=== PATIENT | female | born 2000 | race Caucasian/White ===

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

== ENCOUNTER → 2019-03-21 | Outpatient (CLI) | payer OTHER | LOC: M OUTALCOH 09:00 | PROVIDERS: ATTEND Psychiatry & Neurology Psychiatry | DX: F12.20 Cannabis dependence, uncomplicated (principal) ==

== ENCOUNTER → 2019-03-26 | Outpatient (REF) | payer OTHER ==
[2019-03-26 22:44] LABS: INFLUENZA A AMPLIFICATION NEGATIVE (NEGATIVE); INFLUENZA B AMPLIFICATION NEGATIVE (NEGATIVE)
== END ==
LOC: M LAB REF 10:25
PROVIDERS: ATTEND Physician Assistant Medical
DX: J11.1 Influenza due to unidentified influenza virus with other respiratory manifestations (principal)

== ENCOUNTER 2019-05-02 13:59 | Outpatient (RCR) | payer OTHER | END 2019-05-05 | LOC: M OUTALCOH 13:59 | PROVIDERS: ATTEND Psychiatry & Neurology Psychiatry | DX: F12.20 Cannabis dependence, uncomplicated (principal) ==

== ENCOUNTER → 2019-06-05 | Outpatient (RCR) | payer OTHER | LOC: M OUTALCOH 05-15 12:01 | PROVIDERS: ATTEND Psychiatry & Neurology Psychiatry | DX: F12.20 Cannabis dependence, uncomplicated (principal) ==

== ENCOUNTER 2019-06-25 10:28 | Emergency (ER) | payer OTHER ==
[~2019-06-25] VITALS: Ht 170.2 cm; Wt 84.1 kg
[2019-06-25 10:28] VITALS: BP 175/97
[2019-06-25] MEDS ORDERED: ONDA-83 (10:34)
[2019-06-25] MEDS ORDERED: ONDANSETRON 4MG/2ML VIAL (J2405) IV ONE (11:15)
[2019-06-25] MEDS ORDERED: KETOROLAC 30 MG/ML VIAL (J1885) IV ONE (11:15)
[2019-06-25] MEDS ORDERED: NS 1,000 ML IV ONE (11:15)
[2019-06-25 13:12] LABS: AMPHETAMINES LEVEL URINE NEGATIVE (NEGATIVE); BARBITURATES URINE NEGATIVE (NEGATIVE); BENZODIAZEPINES URINE NEGATIVE (NEGATIVE); CANNABINOIDS URINE POSITIVE (NEGATIVE); COCAINE METABOLITE URINE NEGATIVE (NEGATIVE); METHADONE URINE NEGATIVE (NEGATIVE); OPIATES URINE NEGATIVE (NEGATIVE); PHENCYCLIDINE URINE NEGATIVE (NEGATIVE)
[2019-06-25] MEDS ORDERED: ZOFR4TAB16 PO (22:50)
[2019-06-25] MEDS ORDERED: VICKLIQ28 PO (22:50)
[2019-06-25] MEDS ORDERED: VICKLIQ PO (22:50)
== END 2019-06-25 11:35 | disposition left against medical advice (07) ==
LOC: M ED 10:28
DX: R11.10 Vomiting, unspecified (principal); Z53.29 Procedure and treatment not carried out because of patient's decision for other reasons

== ENCOUNTER 2019-06-25 12:46 | Observation (INO) | payer OTHER ==
[~2019-06-25] VITALS: Ht 170.2 cm; Wt 82.7 kg
[~2019-06-25 12:46] MED LIST changes: +ONDA-83
[2019-06-25] MEDS ORDERED: NS 1,000 ML IV ONE (13:15)
[2019-06-25] MEDS ORDERED: KETOROLAC 30 MG/ML VIAL (J1885) IV ONE (13:15)
[2019-06-25] MEDS ORDERED: ONDANSETRON 4MG/2ML VIAL (J2405) IV ONE ×2 (13:15→19:00)
[2019-06-25] MEDS ORDERED: CAPSAICIN 0.025% CR 60 GM TOP ONE (14:15)
[2019-06-25] MEDS ORDERED: HALOPERIDOL 5 MG/ML VIAL (J1630) IV ONE (14:15)
[2019-06-25 14:26] LABS: BASO % 0.3 % (0.0-1.0); HEMATOCRIT 38.7 % (36.0-47.0); LYMPH # 0.9 10^3/uL (1.5-5.0); LYMPH % 7.9 % (24.0-44.0); MEAN CORPUSCULAR HEMOGLOBIN 31.7 pg (27.0-33.0); MEAN CORPUSCULAR HGB CONC 33.6 g/dl (32.0-36.5); MEAN CORPUSCULAR VOLUME 94.4 fl (80.0-96.0); MONO # 0.3 10^3/uL (0.0-0.8); MONO % 2.6 % (0.0-5.0); NEUTROPHILS # 9.5 10^3/uL (1.5-8.5); NEUTROPHILS % 88.7 % (36.0-66.0); PLATELET COUNT, AUTOMATED 280 10^3/uL (150-450); WHITE BLOOD COUNT 10.7 10^3/uL (4.0-10.0)
[2019-06-25 14:52] LABS: ALBUMIN 3.9 GM/DL (3.2-5.2); ALT/SGPT 27 U/L (12-78); BILIRUBIN,DIRECT 0.2 MG/DL (0.0-0.2); BILIRUBIN,TOTAL 0.5 MG/DL (0.2-1.0); LIPASE 79 U/L (73-393); TOTAL PROTEIN 7.4 GM/DL (6.4-8.2)
[2019-06-25] MEDS ORDERED: METOCLOPRAMIDE INJ 10MG/2ML VIAL (J2765) IV ONE (17:00)
[2019-06-25 17:46] LABS: AMPHETAMINES LEVEL URINE NEGATIVE (NEGATIVE); BARBITURATES URINE NEGATIVE (NEGATIVE); BENZODIAZEPINES URINE NEGATIVE (NEGATIVE); CANNABINOIDS URINE POSITIVE (NEGATIVE); COCAINE METABOLITE URINE NEGATIVE (NEGATIVE); METHADONE URINE NEGATIVE (NEGATIVE); OPIATES URINE NEGATIVE (NEGATIVE); PHENCYCLIDINE URINE NEGATIVE (NEGATIVE)
[2019-06-25] MEDS ORDERED: NS 1,000 ML IV SCH (19:00)
[2019-06-25 19:01] LABS: BLOOD UREA NITROGEN 14 MG/DL (7-18); CALCIUM LEVEL 8.8 MG/DL (8.5-10.1); CARBON DIOXIDE LEVEL 28 MEQ/L (21-32); CHLORIDE LEVEL 106 MEQ/L (98-107); CREATININE FOR GFR 0.91 MG/DL (0.55-1.30); GLUCOSE, FASTING 107 MG/DL (70-100); POTASSIUM SERUM 3.7 MEQ/L (3.5-5.1); SODIUM LEVEL 140 MEQ/L (136-145)
[2019-06-25] MEDS ORDERED: ISOVUE-370 76% 100ML VIAL (Q9967) As Ordered ONE (19:54)
--- NOTE | 2019-06-25 20:50 | REPVR ---
PROCEDURE INFORMATION: Exam: CT Abdomen And Pelvis With Contrast Exam date and time: 06/25/2019 8:36 PM Age: 19 years old Clinical indication: Abdominal pain; Additional info: Severe abdominal pain; R/O obstruction TECHNIQUE: Imaging protocol: Computed tomography of the abdomen and pelvis with intravenous contrast. Radiation optimization: All CT scans at this facility use at least one of these dose optimization techniques: automated exposure control; mA and/or kV adjustment per patient size (includes targeted exams where dose is matched to clinical indication); or iterative reconstruction. Contrast material: ISOVUE 370; Contrast volume: 100 ml; Contrast route: IV; COMPARISON: No relevant prior studies available. FINDINGS: Liver: Normal. No mass. Gallbladder and bile ducts: Normal. No calcified stones. No ductal dilation. Pancreas: Normal. No ductal dilation. Spleen: Normal. No splenomegaly. Adrenals: Normal. No mass. Kidneys and ureters: Normal. No hydronephrosis. Stomach and bowel: Unremarkable. No obstruction. No mucosal thickening. Appendix: No evidence of appendicitis. Intraperitoneal space: Minimal cul-de-sac fluid consistent likely functional. Vasculature: Unremarkable. No abdominal aortic aneurysm. Lymph nodes: Unremarkable. No enlarged lymph nodes. Bladder: Unremarkable as visualized. Reproductive: Unremarkable as visualized. Bones/joints: Unremarkable. No acute fracture. Soft tissues: Mild anasarca. IMPRESSION: 1. Mild anasarca. 2. No acute findings. Electronically signed by: Felix Lucero On 06/25/2019 20:50:36 PM
[2019-06-25] MEDS ORDERED: ACETAMINOPHEN TAB 650MG DOSE (2X325MG) PO PRN (22:45)
[2019-06-25] MEDS ORDERED: METOCLOPRAMIDE INJ 10MG/2ML VIAL (J2765) IV PRN (22:45)
[2019-06-25] MEDS ORDERED: D5W/0.45% SODIUM CHLORIDE 1,000 ML IV SCH (22:45)
[2019-06-25] MEDS ORDERED: DICYCLOMINE 10 MG CAP PO PRN (22:45)
[2019-06-25] MEDS ORDERED: ZOFR4TAB16 PO (22:50)
[2019-06-25] MEDS ORDERED: VICKLIQ PO (22:50)
[2019-06-25] MEDS ORDERED: VICKLIQ28 PO (22:50)
[2019-06-26 00:12] VITALS: BP 139/83
--- NOTE | 2019-06-26 02:15 | HPEPDOC ---
General Date of Admission Jun 25, 2019 at 12:47 Date of Service: Jun 25, 2019 Chief Complaint The patient is a 19-year-old female Who presented to the emergency room with complaints of nausea, vomiting History of Present Illness Patient is a 19-year-old female with a past history of recurrent episodes of nausea and vomiting, was presented to the emergency room with complaints of nausea, vomiting associated with abdominal pain. Patient reports that on Tuesday she began to experience nausea and vomiting and reports at least 10 episodes a day of vomiting reported that her vomitus looks watery/yellow without any evidence of blood. She has noted associated abdominal pain; described as diffuse, 8/10, crampy alleviated with capsaicin cream received in the emergency room and aggravated by nothing. Patient denies any discomfort with urination. She does report diarrhea that happened 1 time this morning and describes his stool as loose. Patient reported subjective fevers, however she never measured her temperature and has reported chills. Patient denies chest pain, shortness of breath, palpitations, cough or headaches She notes her appetite is poor and has lost a few pounds over the last 1 week. Home Medications Scheduled PRN D-Methorphan/PE/Acetaminophen (Vicks Dayquil Liquid) 236 Ml Liquid, 15 ML PO Q4H PRN for COLD/FLU, (Reported) MAX DAILY DOSE OF 4 DOSES Dm/Acetaminophen/Doxylamine (Vicks Nyquil Cold-Flu Liquid) 354 Ml Liquid, 30 ML PO QHS PRN for COLD/FLU, (Reported) Ondansetron HCl (Zofran) 4 Mg Tablet, 4 MG PO Q4H PRN for NAUSEA, (Reported) Allergies Coded Allergies: No Known Allergies (Unverified , 06/25/19) Past Medical History Medical History No significant past medical history reported Surgical History Patient reports that she had a right ankle fracture approximately 3-4 years ago Family History - No history of malignancies Social History - Denies the use of alcohol; patient reports that she smokes tobacco occasionally. Also reports that she smokes marijuana, last use was Tuesday - Denies recent travel or sick contacts - Lives with friend - Occupation; patient is currently unemployed and does not go to school Review of Systems Other systems 10 point review of systems complete, all negative otherwise stated in HPI Vital Signs - Vitals: BP 139/83, HR 76, RR 16, Sat 97%RA, Temp 97.8F - General: Lying in bed, No acute distress, Speaking in full sentences, AAOx3 - HEENT: NC, AT, PERRLA, EOMI - CVS: RRR, +S1S2 - Lungs: Fair air entry bilaterally, No wheezing / rales / rhonchi - Abdomen: Soft, Non-distended, mild tenderness appreciated at epigastrium - Extremities: No lower extremity edema, No calf tenderness - Neuro: No focal motor or sensory deficit - Skin: No visible rashes Laboratory Data Labs 24H Laboratory Tests 2 06/25/19 13:07: Immature Granulocyte % (Auto) 0.5, Neutrophils (%) (Auto) 88.7H, Lymphocytes (%) (Auto) 7.9L, Monocytes (%) (Auto) 2.6, Eosinophils (%) (Auto) 0.0, Basophils (%) (Auto) 0.3, Neutrophils # (Auto) 9.5H, Lymphocytes # (Auto) 0.9L, Monocytes # (Auto) 0.3, Eosinophils # (Auto) 0.0, Basophils # (Auto) 0.0, Nucleated Red B lood Cells % (auto) 0.0, Anion Gap 6L, Calcium Level 8.8, Total Bilirubin 0.5, Direct Bilirubin 0.2, Aspartate Amino Transf (AST/SGOT) 15, Alanine Aminotransferase (ALT/SGPT) 27, Alkaline Phosphatase 54, Total Protein 7.4, Albumin 3.9, Albumin/Globulin Ratio 1.11, Lipase 79 06/25/19 17:08: Urine Color YELLOW, Urine Appearance HAZY, Urine pH 6.0, Urine Specific [place] 1.011, Urine Protein NEGATIVE, Urine Glucose (UA) NEGATIVE, Urine Ketones TRACEH, Urine Blood 2+H, Urine Nitrite NEGATIVE, Urine Bilirubin NEGATIVE, Urine Urobilinogen 0.2, Urine Leukocyte Esterase TRACEH, Urine WBC (Auto) 5H, Urine RBC (Auto) 1, Urine Hyaline Casts (Auto) 0, Urine Bacteria (Auto) NEGATIVE, Urine Squamous Epithelial Cells 1, Urine Mucus (Auto) SMALL, Urine Sperm (Auto) , Urine Opiates Screen NEGATIVE, Urine Methadone Screen NEGATIVE, Urine Barbiturates Screen NEGATIVE, Urine Phencyclidine Screen NEGATIVE, Urine Amphetamines Screen NEGATIVE, Urine Benzodiazepines Screen NEGATIVE, Urine Cocaine Metabolite Screen NEGATIVE, Urine Cannabinoids Screen POSITIVEH CBC/BMP Laboratory Tests 06/25/19 13:07 Microbiology Microbiology 06/25/19 Urine Culture, Received Pending Plan / VTE VTE Prophylaxis Ordered?: Yes Plan Plan Intractable nausea and vomiting - likely 2/2 cyclic vomiting syndrome - 2/2 marijuana use, possibly 2/2 viral gastroenteritis - Presented to the emergency room after having nausea and vomiting since Tuesday - Physical with mild epigastric tenderness noted - Mild leukocytosis; lipase level normal - CT abdomen / pelvis 06/25: 1. Mild anasarca. 2. No acute findings. - Will continue with symptomatic control with dicyclomine and metoclopramide - c/w NPO for now; except medications - Will start IV fluid hydration Gastrointestinal prophylaxis - Will start Protonix DVT prophylaxis - Will start Heparin CONSTANZA VALENCIA MD Jun 26, 2019 02:15
[2019-06-26] MEDS ORDERED: HEPARIN SOD (PORCINE) 5000 UNITS/ML VIAL SC SCH (06:00)
[2019-06-26 06:12] VITALS: BP 143/76
[2019-06-26 06:30] LABS: BASO % 0.3 % (0.0-1.0); EOS # 0.1 10^3/uL (0.0-0.5); EOS % 0.7 % (0.0-3.0); HEMATOCRIT 34.6 % (36.0-47.0); HEMOGLOBIN 11.7 g/dl (12.0-15.5); LYMPH # 2.7 10^3/uL (1.5-5.0); LYMPH % 28.8 % (24.0-44.0); MEAN CORPUSCULAR HEMOGLOBIN 31.9 pg (27.0-33.0); MEAN CORPUSCULAR HGB CONC 33.8 g/dl (32.0-36.5); MEAN CORPUSCULAR VOLUME 94.3 fl (80.0-96.0); MONO # 0.7 10^3/uL (0.0-0.8); MONO % 7.3 % (0.0-5.0); NEUTROPHILS # 5.7 10^3/uL (1.5-8.5); NEUTROPHILS % 62.5 % (36.0-66.0); PLATELET COUNT, AUTOMATED 243 10^3/uL (150-450); RED BLOOD COUNT 3.67 10^6/uL (4.00-5.40); WHITE BLOOD COUNT 9.2 10^3/uL (4.0-10.0)
[2019-06-26 07:00] LABS: BLOOD UREA NITROGEN 10 MG/DL (7-18); CALCIUM LEVEL 8.6 MG/DL (8.5-10.1); CARBON DIOXIDE LEVEL 27 MEQ/L (21-32); CHLORIDE LEVEL 106 MEQ/L (98-107); CREATININE FOR GFR 0.89 MG/DL (0.55-1.30); GLUCOSE, FASTING 88 MG/DL (70-100); SODIUM LEVEL 139 MEQ/L (136-145)
[2019-06-26] MEDS: KCL 10MEQ/100ML SWI (KRUN) 10 MEQ in IV 1 EA IV SCH ×2 (08:31→09:00)
[2019-06-26] MEDS ORDERED: PANTOPRAZOLE 40MG TAB (PROTONIX) PO SCH (09:00)
[2019-06-26] MEDS ORDERED: CAPSAICIN 0.025% CR 60 GM TOP SCH (09:00)
[2019-06-26] MEDS ORDERED: POTASSIUM CHLORIDE 10 MEQ SR TABLET PO ONE (09:30)
[2019-06-26 14:00] VITALS: BP_SYST 127
--- NOTE | 2019-06-26 16:09 | DS.PDOC ---
Discharge Summary General Date of Admission Jun 25, 2019 at 12:47 Date of Discharge 06/26/19 Discharge Summary PROCEDURES PERFORMED DURING STAY: None. ADMITTING DIAGNOSES: 1. Cannabinoid hyperemesis syndrome. DISCHARGE DIAGNOSES: 1. Cannabinoid hyperemesis syndrome , hypokalemia. COMPLICATIONS/CHIEF COMPLAINT: Cannabinoid Hyperemesis Syndrome. HISTORY OF PRESENT ILLNESS: Patient is a 19-year-old female with a past history of recurrent episodes of nausea and vomiting, was presented to the emergency room with complaints of nausea, vomiting associated with abdominal pain. Patient reports that on Tuesday she began to experience nausea and vomiting and reports at least 10 episodes a day of vomiting reported that her vomitus looks watery/yellow without any evidence of blood. She has noted associated abdominal pain; described as diffuse, 8/10, crampy alleviated with capsaicin cream received in the emergency room and aggravated by nothing. Patient denies any discomfort with urination. She does report diarrhea that happened 1 time this morning and describes his stool as loose. Patient reported subjective fevers, however she never measured her temperature and has reported chills. Patient denies chest pain, shortness of breath, palpitations, cough or headaches She notes her appetite is poor and has lost a few pounds over the last 1 week.. HOSPITAL COURSE: [Patient was admitted to medical floor under observation. Patient was started on IV fluids and provided with Zofran for nausea, vomiting . Patient responded very well to the treatment in the morning. She was hungry and her diet was progressed. No more nausea, vomiting. She tolerated diet very well. Her potassium was slightly low. Hence, she did receive supplement for potassium before discharge. Patient clinically stable he'll be discharged home on all current home meds. Patient was advised not to consume marijuana as it causes hyperemesis syndrome and also causes hypokalemia secondary to nausea, vomiting, she understands very well and promised not to consume marijuana anymore. DISCHARGE MEDICATIONS: Please see below. ALLERGIES: Please see below. PHYSICAL EXAMINATION ON DISCHARGE: VITAL SIGNS: Please see below. GENERAL: Within normal limits HEENT: PERRLA extraocular muscles intact NECK: Supple CARDIOVASCULAR EXAMINATION: S1, S2, regular RESPIRATORY EXAMINATION: Clear to A&P ABDOMINAL EXAMINATION: , Soft, nontender, bowel sounds present EXTREMITIES: no cyanosis, edema SKIN: Normal NEUROLOGICAL EXAMINATION: . No focal motor sensory deficit PSYCHIATRIC EXAMINATION: Normal LABORATORY DATA: Please see below. IMAGING: CT abdomen and pelvis: IMPRESSION: 1. Mild anasarca. 2. No acute findings. PROGNOSIS: Good ACTIVITY: As tolerated. DIET: Tolerated DISCHARGE PLAN: Discharge Home DISPOSITION: . Home DISCHARGE INSTRUCTIONS: 1. As per discharge instructions. ITEMS TO FOLLOWUP ON ON OUTPATIENT: 1. Follow with PCP in one week. DISCHARGE CONDITION: Stable. TIME SPENT ON DISCHARGE: 28 minutes. Vital Signs/I&Os Vital Signs Date Time Temp Pulse Resp B/P (MAP) Pulse Ox O2 Delivery O2 Flow Rate FiO2 06/26/19 06:12 96.9 73 17 143/76 (98) 96 Room Air I&O- Last 24 Hours up to 6 AM 06/26/19 06:00 Intake Total 360 ml Balance 360 ml Laboratory Data Labs 24H Laboratory Tests 2 06/25/19 17:08: Urine Color YELLOW, Urine Appearance HAZY, Urine pH 6.0, Urine Specific [place] 1.011, Urine Protein NEGATIVE, Urine Glucose (UA) NEGATIVE, Urine Ketones TRACEH, Urine Blood 2+H, Urine Nitrite NEGATIVE, Urine Bilirubin NEGATIVE, Urine Urobilinogen 0.2, Urine Leukocyte Esterase TRACEH, Urine WBC (Auto) 5H, Urine RBC (Auto) 1, Urine Hyaline Casts (Auto) 0, Urine Bacteria (Auto) NEGATIVE, Urine Squamous Epithelial Cells 1, Urine Mucus (Auto) SMALL, Urine Sperm (Auto) , Urine Opiates Screen NEGATIVE, Urine Methadone Screen NEGATIVE, Urine Barbiturates Screen NEGATIVE, Urine Phencyclidine Screen NEGATIVE, Urine Amphetamines Screen NEGATIVE, Urine Benzodiazepines Screen NEGATIVE, Urine Cocaine Metabolite Screen NEGATIVE, Urine Cannabinoids Screen POSITIVEH 06/26/19 06:09: Immature Granulocyte % (Auto) 0.4, Neutrophils (%) (Auto) 62.5, Lymphocytes (%) (Auto) 28.8, Monocytes (%) (Auto) 7.3H, Eosinophils (%) (Auto) 0.7, Basophils (%) (Auto) 0.3, Neutrophils # (Auto) 5.7, Lymphocytes # (Auto) 2.7, Monocytes # (Auto) 0.7, Eosinophils # (Auto) 0.1, Basophils # (Auto) 0.0, Nucleated Red Blood Cells % (auto) 0.0, Anion Gap 6L, Calcium Level 8.6, Magnesium Level 2.0 CBC/BMP Laboratory Tests 06/26/19 06:09 06/26/19 11:44 Microbiology Microbiology 06/25/19 Urine Culture, Received Pending Discharge Medications Scheduled PRN D-Methorphan/PE/Acetaminophen (Vicks Dayquil Liquid) 236 Ml Liquid, 15 ML PO Q4H PRN for COLD/FLU, (Reported) MAX DAILY DOSE OF 4 DOSES Dm/Acetaminophen/Doxylamine (Vicks Nyquil Cold-Flu Liquid) 354 Ml Liquid, 30 ML PO QHS PRN for COLD/FLU, (Reported) Ondansetron HCl (Zofran) 4 Mg Tablet, 4 MG PO Q4H PRN for NAUSEA, (Reported) Allergies Coded Allergies: No Known Allergies (Unverified , 06/25/19) ALFONSO BENNETT MD Jun 26, 2019 16:09
== END 2019-06-26 16:05 | disposition home or self-care (01) ==
LOC: M ED 12:46 → M ED INP 12:47 → ENRESERV 23:11 → M MS5PR 06-26 00:14
PROVIDERS: ADMIT Internal Medicine; ATTEND Internal Medicine
DX: F12.188 Cannabis abuse with other cannabis-induced disorder (principal); E87.6 Hypokalemia; F17.218 Nicotine dependence, cigarettes, with other nicotine-induced disorders
CPT/HCPCS: 36415; 74177; 80048; 80076; 80307; 81001; 83690; 83735; 84132; 85025; 87086; 96361; 96372; 96374; 96375; 99284; J1630; J2405; J2765; Q9967

== ENCOUNTER → 2019-07-06 | Outpatient (RCR) | payer OTHER ==
[~2019-07-06] MED LIST changes: +VICKLIQ PO; +VICKLIQ28 PO; +ZOFR4TAB16 PO
== END ==
LOC: M OUTALCOH 06-12 13:07
PROVIDERS: ATTEND Psychiatry & Neurology Psychiatry
DX: F12.20 Cannabis dependence, uncomplicated (principal)

== ENCOUNTER 2019-08-01 12:00 | Outpatient (RCR) | payer OTHER | END 2019-08-04 | LOC: M OUTALCOH 12:00 | PROVIDERS: ATTEND Psychiatry & Neurology Addiction Medicine | DX: F12.20 Cannabis dependence, uncomplicated (principal) ==

== ENCOUNTER → 2019-09-04 | Outpatient (RCR) | payer OTHER | LOC: M OUTALCOH 08-07 13:06 | PROVIDERS: ATTEND Psychiatry & Neurology Addiction Medicine | DX: F12.20 Cannabis dependence, uncomplicated (principal) ==

== ENCOUNTER 2019-10-03 13:52 | Outpatient (RCR) | payer OTHER | END 2019-10-04 | LOC: M OUTALCOH 13:52 | PROVIDERS: ATTEND Psychiatry & Neurology Addiction Medicine | DX: F12.20 Cannabis dependence, uncomplicated (principal) ==

== ENCOUNTER 2019-11-01 09:00 | Outpatient (RCR) | payer OTHER | END 2019-11-04 | LOC: M OUTALCOH 09:00 | PROVIDERS: ATTEND Psychiatry & Neurology Addiction Medicine | DX: F12.20 Cannabis dependence, uncomplicated (principal) ==

== ENCOUNTER 2019-11-06 11:09 | Emergency (ER) | payer OTHER ==
[~2019-11-06] VITALS: Ht 170.2 cm; Wt 84.1 kg
[2019-11-06 11:31] LABS: BASO % 0.2 % (0.0-1.0); EOS % 0.1 % (0.0-3.0); HEMATOCRIT 40.9 % (36.0-47.0); HEMOGLOBIN 13.8 g/dl (12.0-15.5); LYMPH # 1.3 10^3/uL (1.5-5.0); LYMPH % 9.1 % (24.0-44.0); MEAN CORPUSCULAR HEMOGLOBIN 31.8 pg (27.0-33.0); MEAN CORPUSCULAR HGB CONC 33.7 g/dl (32.0-36.5); MEAN CORPUSCULAR VOLUME 94.2 fl (80.0-96.0); MONO # 0.7 10^3/uL (0.0-0.8); MONO % 5.2 % (0.0-5.0); NEUTROPHILS # 11.8 10^3/uL (1.5-8.5); NEUTROPHILS % 84.8 % (36.0-66.0); PLATELET COUNT, AUTOMATED 333 10^3/uL (150-450); RED BLOOD COUNT 4.34 10^6/uL (4.00-5.40); WHITE BLOOD COUNT 13.9 10^3/uL (4.0-10.0)
[2019-11-06] MEDS ORDERED: NS 1,000 ML IV ONE (12:00)
[2019-11-06] MEDS ORDERED: ONDANSETRON 4MG/2ML VIAL IV ONE (12:00)
[2019-11-06 12:01] LABS: ALBUMIN 4.4 GM/DL (3.2-5.2); BILIRUBIN,DIRECT 0.3 MG/DL (0.0-0.2); BILIRUBIN,TOTAL 0.9 MG/DL (0.2-1.0); TOTAL PROTEIN 8.2 GM/DL (6.4-8.2)
[2019-11-06] MEDS ORDERED: HALOPERIDOL 5MG/ML VIAL (J1630 PER 1) IV ONE (13:15)
[2019-11-06] MEDS ORDERED: GI COCKTAIL 50ML BTL(HYOSCYAMINE/MAALOX/LIDOCAINE VISCOUS)(1:3:1) PO ONE (14:15)
[2019-11-06] MEDS ORDERED: PEPC1TAB5 PO (14:26)
[2019-11-06] MEDS ORDERED: ONDA4TAB6 PO (14:26)
[2019-11-06 14:34] VITALS: BP 105/78
== END 2019-11-06 14:38 | disposition home or self-care (01) ==
LOC: M ED 11:09
DX: K29.00 Acute gastritis without bleeding (principal); F33.9 Major depressive disorder, recurrent, unspecified; F41.9 Anxiety disorder, unspecified
CPT/HCPCS: 80047; 80076; 83690; 84702; 85025; 96361; 96374; 96375; 99284; J1630; J2405

== ENCOUNTER 2019-11-07 06:04 | Emergency (ER) | payer OTHER ==
[~2019-11-07] VITALS: Ht 170.2 cm; Wt 79.5 kg
[~2019-11-07 06:04] MED LIST changes: +ONDA4TAB6 PO; +PEPC1TAB5 PO
[2019-11-07] MEDS ORDERED: ONDANSETRON 4MG/2ML VIAL IV ONE (06:30)
[2019-11-07] MEDS ORDERED: NS 1,000 ML IV ONE (06:30)
[2019-11-07 06:48] LABS: BASO % 0.3 % (0.0-1.0); EOS % 0.1 % (0.0-3.0); HEMATOCRIT 39.1 % (36.0-47.0); HEMOGLOBIN 13.3 g/dl (12.0-15.5); LYMPH # 1.3 10^3/uL (1.5-5.0); LYMPH % 10.9 % (24.0-44.0); MEAN CORPUSCULAR HEMOGLOBIN 32.2 pg (27.0-33.0); MEAN CORPUSCULAR VOLUME 94.7 fl (80.0-96.0); MONO # 0.7 10^3/uL (0.0-0.8); MONO % 5.6 % (0.0-5.0); NEUTROPHILS # 9.5 10^3/uL (1.5-8.5); NEUTROPHILS % 82.5 % (36.0-66.0); PLATELET COUNT, AUTOMATED 301 10^3/uL (150-450); RED BLOOD COUNT 4.13 10^6/uL (4.00-5.40); WHITE BLOOD COUNT 11.5 10^3/uL (4.0-10.0)
[2019-11-07] MEDS ORDERED: HALOPERIDOL 5MG/ML VIAL (J1630 PER 1) IV ONE (07:00)
[2019-11-07 07:12] LABS: AMPHETAMINES LEVEL URINE NEGATIVE (NEGATIVE); BARBITURATES URINE NEGATIVE (NEGATIVE); BENZODIAZEPINES URINE NEGATIVE (NEGATIVE); CANNABINOIDS URINE POSITIVE (NEGATIVE); COCAINE METABOLITE URINE POSITIVE (NEGATIVE); METHADONE URINE NEGATIVE (NEGATIVE); OPIATES URINE NEGATIVE (NEGATIVE); PHENCYCLIDINE URINE NEGATIVE (NEGATIVE)
[2019-11-07 07:21] LABS: ALBUMIN 3.9 GM/DL (3.2-5.2); ALT/SGPT 21 U/L (12-78); BILIRUBIN,DIRECT 0.2 MG/DL (0.0-0.2); BILIRUBIN,TOTAL 0.7 MG/DL (0.2-1.0); BLOOD UREA NITROGEN 18 MG/DL (7-18); CALCIUM LEVEL 9.1 MG/DL (8.5-10.1); CARBON DIOXIDE LEVEL 25 MEQ/L (21-32); CHLORIDE LEVEL 105 MEQ/L (98-107); CK-MB VALUE MASS < 1.0 NG/ML (<3.6); CPK CREATINE PHOSPHOKINASE 76 U/L (26-192); CREATININE FOR GFR 1.06 MG/DL (0.55-1.30); ETHYL ALCOHOL (ETHANOL) < 0.003 % (0.000-0.010); GLUCOSE, FASTING 96 MG/DL (70-100); LIPASE 84 U/L (73-393); MB/CK RELATIVE INDEX 1.32 (< OR =4); POTASSIUM SERUM 3.4 MEQ/L (3.5-5.1); SODIUM LEVEL 141 MEQ/L (136-145); TOTAL PROTEIN 7.5 GM/DL (6.4-8.2); TROPONIN I < 0.02 NG/ML (< 0.10)
[2019-11-07 08:30] VITALS: BP 103/51
--- NOTE | 2019-11-07 08:56 | ECGEPIP ---
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
== END 2019-11-07 08:43 | disposition home or self-care (01) ==
LOC: M ED 06:04
DX: R11.10 Vomiting, unspecified (principal); F12.10 Cannabis abuse, uncomplicated; F14.10 Cocaine abuse, uncomplicated
CPT/HCPCS: 80048; 80076; 80307; 81001; 82550; 82553; 83690; 84702; 85025; 87086; 93005; 93041; 94760; 96361; 96374; 96375; 99285; G0480; J1630; J2405

== ENCOUNTER 2019-11-09 06:30 | Emergency (ER) | payer OTHER ==
[~2019-11-09] VITALS: Ht 170.2 cm; Wt 85.3 kg
[2019-11-09] MEDS ORDERED: ZOFR4TAB16 PO (06:36)
[2019-11-09] MEDS ORDERED: PEPC1TAB5 PO (06:36)
[2019-11-09] MEDS ORDERED: PROMETHAZINE INJ 25 MG/ML VIAL (J2550) IV ONE (07:15)
[2019-11-09] MEDS ORDERED: NS 1,000 ML IV ONE (07:15)
[2019-11-09 07:42] LABS: BASO % 0.3 % (0.0-1.0); HEMATOCRIT 35.1 % (36.0-47.0); HEMOGLOBIN 12.4 g/dl (12.0-15.5); LYMPH # 1.3 10^3/uL (1.5-5.0); LYMPH % 14.5 % (24.0-44.0); MEAN CORPUSCULAR HEMOGLOBIN 32.5 pg (27.0-33.0); MEAN CORPUSCULAR HGB CONC 35.3 g/dl (32.0-36.5); MEAN CORPUSCULAR VOLUME 92.1 fl (80.0-96.0); MONO # 0.6 10^3/uL (0.0-0.8); MONO % 7.2 % (0.0-5.0); NEUTROPHILS # 6.8 10^3/uL (1.5-8.5); NEUTROPHILS % 77.7 % (36.0-66.0); PLATELET COUNT, AUTOMATED 244 10^3/uL (150-450); RED BLOOD COUNT 3.81 10^6/uL (4.00-5.40); WHITE BLOOD COUNT 8.8 10^3/uL (4.0-10.0)
[2019-11-09 08:19] LABS: ALBUMIN 3.6 GM/DL (3.2-5.2); ALT/SGPT 55 U/L (12-78); BILIRUBIN,DIRECT 0.3 MG/DL (0.0-0.2); BILIRUBIN,TOTAL 0.8 MG/DL (0.2-1.0); BLOOD UREA NITROGEN 13 MG/DL (7-18); CALCIUM LEVEL 8.9 MG/DL (8.5-10.1); CARBON DIOXIDE LEVEL 26 MEQ/L (21-32); CHLORIDE LEVEL 106 MEQ/L (98-107); CREATININE FOR GFR 0.93 MG/DL (0.55-1.30); GLUCOSE, FASTING 100 MG/DL (70-100); LIPASE 71 U/L (73-393); POTASSIUM SERUM 3.4 MEQ/L (3.5-5.1); SODIUM LEVEL 142 MEQ/L (136-145); TOTAL PROTEIN 6.8 GM/DL (6.4-8.2)
[2019-11-09 09:34] VITALS: BP 110/63
--- NOTE | 2019-11-09 09:53 | REP ---
ABDOMINAL SERIES: Supine and erect views of the abdomen demonstrate no evidence of free intraperitoneal air and no evidence of bowel obstruction. No dilated small bowel loops are seen. There are a few phleboliths in the pelvis. An accompanying view of the chest demonstrates no acute infiltrate. Heart and mediastinum are within normal limits. IMPRESSION: No free air or obstruction. Lungs are free of infiltrate. Electronically Signed by Armond Guzman MD 11/12/2019 09:34 P
== END 2019-11-09 10:07 | disposition home or self-care (01) ==
LOC: M ED 06:30
DX: F12.188 Cannabis abuse with other cannabis-induced disorder (principal); F17.200 Nicotine dependence, unspecified, uncomplicated; Z79.899 Other long term (current) drug therapy

== ENCOUNTER → 2019-12-04 | Outpatient (RCR) | payer OTHER | LOC: M OUTALCOH 11-07 13:56 | PROVIDERS: ATTEND Psychiatry & Neurology Addiction Medicine | DX: F12.20 Cannabis dependence, uncomplicated (principal) ==

== ENCOUNTER 2019-12-27 09:00 | Outpatient (RCR) | payer OTHER | END 2020-01-04 | LOC: M OUTALCOH 09:00 | PROVIDERS: ATTEND Psychiatry & Neurology Addiction Medicine | DX: F12.20 Cannabis dependence, uncomplicated (principal) ==

== ENCOUNTER 2020-01-21 13:00 | Outpatient (RCR) | payer OTHER | END 2020-02-04 | LOC: M OUTALCOH 13:00 | PROVIDERS: ATTEND Psychiatry & Neurology Addiction Medicine | DX: F12.20 Cannabis dependence, uncomplicated (principal) ==

== ENCOUNTER → 2020-03-18 | Outpatient (CLI) | payer OTHER ==
[~2020-03-18] MED LIST changes: +AUGM875T28 PO; +PROC10TA4 PO
== END ==
LOC: M OUTALCOH 08:22
PROVIDERS: ATTEND Psychiatry & Neurology Addiction Medicine
DX: F12.20 Cannabis dependence, uncomplicated (principal)

== ENCOUNTER 2020-03-26 11:51 | Emergency (ER) | payer OTHER ==
[~2020-03-26] VITALS: Ht 170.2 cm; Wt 86.6 kg
[~2020-03-26 11:51] MED LIST changes: -AUGM875T28 PO; -PROC10TA4 PO
[2020-03-26] MEDS ORDERED: KETOROLAC 30 MG/ML 1ML VIAL IV ONE (12:15)
[2020-03-26] MEDS ORDERED: NS 1,000 ML IV ONE (12:15)
[2020-03-26] MEDS ORDERED: METOCLOPRAMIDE INJ 10MG/2ML VIAL (J2765 PER 1) IV ONE (12:15)
[2020-03-26 12:38] LABS: BASO % 0.2 % (0.0-1.0); EOS % 0.1 % (0.0-3.0); HEMATOCRIT 39.5 % (36.0-47.0); HEMOGLOBIN 13.4 g/dl (12.0-15.5); LYMPH # 1.4 10^3/uL (1.5-5.0); LYMPH % 11.3 % (24.0-44.0); MEAN CORPUSCULAR HEMOGLOBIN 31.6 pg (27.0-33.0); MEAN CORPUSCULAR HGB CONC 33.9 g/dl (32.0-36.5); MEAN CORPUSCULAR VOLUME 93.2 fl (80.0-96.0); MONO # 0.9 10^3/uL (0.0-0.8); MONO % 7.2 % (0.0-5.0); NEUTROPHILS # 9.8 10^3/uL (1.5-8.5); NEUTROPHILS % 80.8 % (36.0-66.0); PLATELET COUNT, AUTOMATED 315 10^3/uL (150-450); RED BLOOD COUNT 4.24 10^6/uL (4.00-5.40); WHITE BLOOD COUNT 12.2 10^3/uL (4.0-10.0)
[2020-03-26] MEDS ORDERED: KCL 10MEQ/100ML SWI (KRUN) 10 MEQ in IV 1 EA IV ONE (12:45)
[2020-03-26] MEDS ORDERED: ISOVUE-370 76% 100ML VIAL As Ordered ONE (12:58)
[2020-03-26 13:06] LABS: ALBUMIN 4.4 GM/DL (3.2-5.2); BILIRUBIN,DIRECT 0.2 MG/DL (0.0-0.2); BILIRUBIN,TOTAL 0.6 MG/DL (0.2-1.0); TOTAL PROTEIN 8.2 GM/DL (6.4-8.2)
[2020-03-26] MEDS ORDERED: ONDANSETRON 4MG/2ML VIAL IV ONE (13:30)
[2020-03-26] MEDS ORDERED: HALOPERIDOL 5MG/ML VIAL (J1630 PER 1) IV ONE (13:30)
--- NOTE | 2020-03-26 13:36 | REPVR ---
PROCEDURE INFORMATION: Exam: CT Abdomen And Pelvis With Contrast Exam date and time: 03/26/2020 1:09 PM Age: 19 years old Clinical indication: Nausea and vomiting; Abdominal pain; Localized; Right; Additional info: Right sided abd pain TECHNIQUE: Imaging protocol: Computed tomography of the abdomen and pelvis with intravenous contrast. Radiation optimization: All CT scans at this facility use at least one of these dose optimization techniques: automated exposure control; mA and/or kV adjustment per patient size (includes targeted exams where dose is matched to clinical indication); or iterative reconstruction. Contrast material: ISOVUE 370; Contrast volume: 100 ml; Contrast route: INTRAVENOUS (IV); COMPARISON: CT ABD/PEL W/IV CONTRAST ONLY 06/25/2019 8:34 PM FINDINGS: Liver: Normal. No mass. Gallbladder and bile ducts: Normal. No calcified stones. No ductal dilation. Pancreas: Normal. No ductal dilation. Spleen: Normal. No splenomegaly. Adrenals: Normal. No mass. Kidneys and ureters: Normal. No hydronephrosis. Stomach and bowel: Luminal contraction of the abdominal and sigmoid colon limits assessment for wall thickening. Appendix: The vermiform appendix is normal. Intraperitoneal space: Unremarkable. No free air. No significant fluid collection. Vasculature: Calcified phleboliths are present in the lower pelvis bilaterally. Lymph nodes: No enlarged lymph nodes. Urinary bladder: The urinary bladder is partially decompressed and somewhat difficult to assess. Reproductive: A tampon is present in the vagina. Bones/joints: Unremarkable. No acute fracture. Soft tissues: Unremarkable. IMPRESSION: No definite acute abdominal or pelvic abnormality identified. Electronically signed by: Aly Syed On 03/26/2020 13:35:51 PM
[2020-03-26] MEDS ORDERED: PROC10TA4 PO (14:52)
[2020-03-26 15:01] VITALS: BP 161/96
[2020-03-27] MEDS ORDERED: AUGM875T28 PO (10:07)
== END 2020-03-26 15:02 | disposition home or self-care (01) ==
LOC: M ED 11:51
DX: R11.2 Nausea with vomiting, unspecified (principal); R06.02 Shortness of breath; R07.89 Other chest pain; R10.9 Unspecified abdominal pain; F41.9 Anxiety disorder, unspecified; F32.9 Major depressive disorder, single episode, unspecified; Z72.0 Tobacco use
CPT/HCPCS: 74177; 80047; 80076; 81001; 83690; 84702; 85025; 96365; 96366; 96375; 99284; J1630; J1885; J2405; J2765; Q9967

== ENCOUNTER 2020-03-27 08:39 | Emergency (ER) | payer OTHER ==
[~2020-03-27] VITALS: Ht 170.2 cm; Wt 86.6 kg
[~2020-03-27 08:39] MED LIST changes: +PROC10TA4 PO
[2020-03-27] MEDS ORDERED: AUGM875T28 PO (10:07)
[2020-03-27 10:27] VITALS: BP 107/58
== END 2020-03-27 10:30 | disposition home or self-care (01) ==
LOC: M ED 08:39
DX: J02.0 Streptococcal pharyngitis (principal); F41.9 Anxiety disorder, unspecified; F32.9 Major depressive disorder, single episode, unspecified; F17.200 Nicotine dependence, unspecified, uncomplicated

== ENCOUNTER 2020-03-29 09:08 | Observation (INO) | payer OTHER ==
[~2020-03-29] VITALS: Ht 170.2 cm; Wt 87.9 kg
[~2020-03-29 09:08] MED LIST changes: +AUGM875T28 PO
[2020-03-29] MEDS ORDERED: ONDANSETRON 4MG/2ML VIAL IV ONE (09:30)
[2020-03-29] MEDS ORDERED: NS 1,000 ML IV ONE (09:30)
[2020-03-29] MEDS ORDERED: cefTRIAXone SOD 1 GM in D5W MINI-BAG PLUS 50 ML IV ONE (09:30)
[2020-03-29 10:08] LABS: BASO % 0.3 % (0.0-1.0); EOS % 0.1 % (0.0-3.0); HEMATOCRIT 39.8 % (36.0-47.0); HEMOGLOBIN 13.8 g/dl (12.0-15.5); LYMPH # 1.3 10^3/uL (1.5-5.0); LYMPH % 13.6 % (24.0-44.0); MEAN CORPUSCULAR HEMOGLOBIN 31.2 pg (27.0-33.0); MEAN CORPUSCULAR HGB CONC 34.7 g/dl (32.0-36.5); MEAN CORPUSCULAR VOLUME 89.8 fl (80.0-96.0); MONO # 0.6 10^3/uL (0.0-0.8); MONO % 6.6 % (0.0-5.0); NEUTROPHILS # 7.4 10^3/uL (1.5-8.5); NEUTROPHILS % 78.8 % (36.0-66.0); PLATELET COUNT, AUTOMATED 307 10^3/uL (150-450); RED BLOOD COUNT 4.43 10^6/uL (4.00-5.40); WHITE BLOOD COUNT 9.4 10^3/uL (4.0-10.0)
[2020-03-29 10:30] LABS: BILIRUBIN,DIRECT 0.3 MG/DL (0.0-0.2); BILIRUBIN,TOTAL 0.8 MG/DL (0.2-1.0); TOTAL PROTEIN 8.1 GM/DL (6.4-8.2)
[2020-03-29 10:42] LABS: MAGNESIUM LEVEL 2.2 MG/DL (1.8-2.4)
[2020-03-29] MEDS ORDERED: KCL 10MEQ/100ML SWI (KRUN) 10 MEQ in IV 1 EA IV ONE (10:45)
[2020-03-29] MEDS ORDERED: D5W/0.45% SODIUM CHLORIDE 1,000 ML IV ONE (11:15)
[2020-03-29] MEDS ORDERED: AUGM875T28 PO (11:32)
[2020-03-29] MEDS ORDERED: ZOFR4TAB16 PO (11:32)
--- NOTE | 2020-03-29 12:04 | HPEPDOC ---
[facility] Medical History & Physical Date of Admission Mar 29, 2020 Date of Service: Mar 29, 2020 History and Physical CHIEF COMPLAINT: Nausea and vomiting HISTORY OF PRESENT ILLNESS: 20-year-old female with history of frequent visits to the hospital due to cannabis hyperemesis syndrome presents due to nausea and vomiting for the past 1 week. Says she's been throwing up about 10 times daily for the past 1 week and she feels tired which prompted her to come to the emergency department. Says she noticed a one-time episode where she noticed a speck low blood and she threw up but has not occurred since. She tells me last week she was diagnosed with strep throat but was unable to tolerate her oral antibiotics and threw all of them up. In the emergency department patient received Zofran as well as 1 dose of ceftriaxone for the strep throat PAST MEDICAL HISTORY: Anxiety and depression PAST SURGICAL HISTORY: Had a right ankle fracture surgery SOCIAL HISTORY: Denies alcohol use Versus smoking about 5 cigarettes daily Endorses cannabis use daily but denies any other illicit drug use FAMILY HISTORY: Noncontributory ALLERGIES: Please see below. REVIEW OF SYSTEMS: Constitutional: No sweating or weight loss Eyes: No eye pain or acute blurred vision HENT: No complaints of headache. Mildly sore throat. Cadiovascular: No Chest pain or palpitations Pulm: No SOB or cough Gastrointestinal: Per HPI. Abdomen get sore after she frequently throws up. Genitourinary: No dysuria or hematuria Musculoskeletal: No back pain or joint pain Skin: No rash or jaundice HOME MEDICATIONS: Please see below. PHYSICAL EXAMINATION: Constitutional: Awake and alert, in mild distress while vomiting ENT: Sclera are clear. Mucosa is moist. Respiratory: Lungs CTA bilaterally. No respiratory distress. No use of accessory muscles. Cardiovascular: RRR S1 and S2 are normal, no murmur Gastrointestinal: Abdomen is soft and obese, non distended, non tender, BS present. Musculoskeletal: No edema. No joint deformities. RUE 5/5, LUE 5/5, BLE 5/5 Neurologic: No focal neurological deficit. Mental Status: A&O x3, normal affect Skin: Warm, dry LABORATORY DATA: See below. MICROBIOLOGY: Please see below. ASSESSMENT/PLAN 20-year-old female with history of frequent visits to the hospital due to cannabis hyperemesis syndrome presents due to nausea and vomiting for the past 1 week. Admitted to medical unit for observation. # Cannabis hyperemesis syndrome: Advised to quit cannabis use. Zofran IV when necessary. Reglan IV scheduled. PPI. IV hydration. QTC okay. # Hematemesis: Speckle of blood once when throwing up. Likely small Elizabeth- Stokes tear. If no more bleeding occurs I recommend outpatient EGD. If she continues to have hematemesis I discussed the case with Dr Ojeda who will perform an EGD in the morning. PPI IV while inpatient and then by mouth upon discharge. # History of positive strep throat: Unable to tolerate by mouth medications. Received 1 dose of ceftriaxone in the emergency department. One dose penicillin 1.2 million units IM. # Elevated blood pressure without prior diagnosis of hypertension: Could be from her distress. Treat conditions above and reevaluate blood pressure. Counseled on lifestyle modifications. # Hypokalemia: Replace and monitor. # Tobacco use: Does not want nicotine patch. Counseled to quit. # Reports some anxiety and depression: No suicidal thoughts or plans. F/U with P CP. # DVT prophylaxis: SCDs A Yousef Hospitalist Vital Signs Vital Signs Date Time Temp Pulse Resp B/P (MAP) Pulse Ox O2 Delivery O2 Flow Rate FiO2 03/29/20 11:30 18 03/29/20 09:08 97.4 53 100 Room Air Laboratory Data Labs 24H Laboratory Tests 2 03/29/20 09:52: POC Glucose (Misc Panel) 96, POC Sodium (Misc Panel) 138, POC Potassium (Misc Panel) 2.8*L, POC Chloride (Misc Panel) 99, POC Total CO2 (Misc Panel) 24.0, POC Blood Urea Nitrogen (Misc Panel 10, POC Ionized Calcium (Misc Panel) 4.4L, POC Creatinine (Misc Panel) 1.0, POC Hematocrit (Misc Panel) 44.0 03/29/20 09:55: POC Beta HCG, Quantitative < 5.0 03/29/20 09:57: Immature Granulocyte % (Auto) 0.6, Neutrophils (%) (Auto) 78.8H, Lymphocytes (%) (Auto) 13.6L, Monocytes (%) (Auto) 6.6H, Eosinophils (%) (Auto) 0.1, Basophils (%) (Auto) 0.3, Neutrophils # (Auto) 7.4, Lymphocytes # (Auto) 1.3L, Monocytes # (Auto) 0.6, Eosinophils # (Auto) 0.0, Basophils # (Auto) 0.0, Nucleated Red Blood Cells % (auto) 0.0, Magnesium Level 2.2, Total Bilirubin 0.8, Direct Bilirubin 0.3H, Aspartate Amino Transf (AST/SGOT) 27, Alanine Aminotransferase (ALT/SGPT) 39, Alkaline Phosphatase 62, Total Protein 8.1, Albumin 4.0, Albumin/Globulin Ratio 1.0L, Lipase 85 CBC/BMP Laboratory Tests 03/29/20 09:57 Home Medications Scheduled Amoxicillin/Potassium Clav (Augmentin 875-125 Tablet) 1 Each Tablet, 1 TAB PO BID Scheduled PRN Ondansetron HCl (Zofran) 4 Mg Tablet, 4 MG PO Q6H PRN for NAUSEA OR VOMITING Allergies Coded Allergies: No Known Allergies (Unverified , 03/29/20) A-FIB/CHADSVASC A-FIB History Current/History of A-Fib/PAF?: No YURI FAGAN MD Mar 29, 2020 12:04
[2020-03-29] MEDS ORDERED: ACETAMINOPHEN TAB 650MG DOSE (2X325MG) PO PRN (12:15)
[2020-03-29] MEDS ORDERED: MAALOX 30 ML SUSP *UDC PO PRN (12:15)
[2020-03-29] MEDS ORDERED: MOM 30ML SUSPENSION UDC PO PRN (12:15)
[2020-03-29] MEDS: POTASSIUM CHLORIDE 10 MEQ SR TABLET PO ONE ×2 (12:24→12:30)
[2020-03-29] MEDS ORDERED: BICILLIN L-A 2,400,000 UNIT/4 ML SYRINGE (J0561-24)PENICILLIN G BENZATINE IM ONE (13:00)
[2020-03-29] MEDS: PANTOPRAZOLE 40MG VIAL (C9113 PER 1) IV SCH (13:05)
[2020-03-29 13:08] LABS: INR 1.08; PROTHROMBIN TIME 14.2 SECONDS (12.5-14.3)
[2020-03-29 13:30] VITALS: BP 140/87
[2020-03-29] MEDS: METOCLOPRAMIDE INJ 10MG/2ML VIAL (J2765 PER 1) IV SCH ×2 (14:17→18:33)
[2020-03-29] MEDS: NS 1,000 ML IV SCH (16:10)
[2020-03-29] MEDS: CAPSAICIN 0.025% CR 60 GM TOP PRN (16:10)
--- NOTE | 2020-03-29 16:16 | ECGEPIP ---
[facility] - ED Test Date: 2020-03-29 Pat Name: HUI BROWN Department: Room: - Gender: Female Manager General: : 2000 Requested By: Yash Verma Order Number: [id number] Reading MD: Yash Verma Measurements Intervals [place] Rate: 52 P: 55 [place]: 109 QRS: 63 QRSD: 95 T: 30 QT: 417 QTc: 391 Interpretive Statements SINUS BRADYCARDIA WITH SINUS ARRHYTHMIA WITH SHORT [place] INTERVAL POSSIBLE RIGHT VENTRICULAR CONDUCTION DELAY NONSPECIFIC ST T WAVE CHANGES CW 11/07/[address] T WAVE CHANGES Electronically Signed on 03-29-2020 16:15:48 EDT by Yash Verma
[2020-03-29 22:00] VITALS: BP 130/79
[2020-03-30] MEDS: NS 1,000 ML IV SCH ×2 (00:07→05:06)
[2020-03-30] MEDS: ONDANSETRON 4MG/2ML VIAL IV PRN ×3 (00:07→09:53)
[2020-03-30] MEDS: METOCLOPRAMIDE INJ 10MG/2ML VIAL (J2765 PER 1) IV SCH ×3 (00:15→12:51)
[2020-03-30 05:51] LABS: HEMATOCRIT 38.4 % (36.0-47.0); HEMOGLOBIN 13.5 g/dl (12.0-15.5); MEAN CORPUSCULAR HEMOGLOBIN 32.4 pg (27.0-33.0); MEAN CORPUSCULAR HGB CONC 35.2 g/dl (32.0-36.5); MEAN CORPUSCULAR VOLUME 92.1 fl (80.0-96.0); PLATELET COUNT, AUTOMATED 290 10^3/uL (150-450); RED BLOOD COUNT 4.17 10^6/uL (4.00-5.40); WHITE BLOOD COUNT 11.4 10^3/uL (4.0-10.0)
[2020-03-30 06:00] VITALS: BP 142/72
[2020-03-30 06:18] LABS: BLOOD UREA NITROGEN 7 MG/DL (7-18); CALCIUM LEVEL 8.5 MG/DL (8.5-10.1); CARBON DIOXIDE LEVEL 27 MEQ/L (21-32); CHLORIDE LEVEL 105 MEQ/L (98-107); GLOMERULAR FILTRATION RATE > 60.0 (>60); GLUCOSE, FASTING 90 MG/DL (70-100); POTASSIUM SERUM 3.1 MEQ/L (3.5-5.1); SODIUM LEVEL 139 MEQ/L (136-145)
[2020-03-30] MEDS ORDERED: POTASSIUM CHLORIDE 10% LIQ 20 MEQ/15 ML UDC PO ONE (08:00)
[2020-03-30] MEDS ORDERED: HEPARIN SOD (PORCINE) 5000UNITS/ML 1ML VIAL/SYRINGE SQ SCH (09:00)
[2020-03-30] MEDS: KCL 10MEQ/100ML SWI (KRUN) 10 MEQ in IV 1 EA IV SCH ×4 (09:54→12:51)
[2020-03-30] MEDS: PANTOPRAZOLE 40MG VIAL (C9113 PER 1) IV SCH (09:54)
--- NOTE | 2020-03-30 10:30 | IPNPDOC ---
Text Note Date of Service The patient was seen on 03/30/20. NOTE Subjective: Tissue was seen and examined this morning at bedside she tells me she's feeling much better she said retches but has been he will keep her food down and has not vomited since last night. Says her abdominal pain has improved. There was no overnight events reported to me. Patient says she feels well to go back home today if she can eat lunch and keep it down. No more speckles of blood when she vomits. Objective: Constitutional: Awake and alert, in no distress in bed ENT: Sclera are clear. Mucosa is moist. Respiratory: Lungs CTA bilaterally. No respiratory distress. No use of accessory muscles. Cardiovascular: RRR S1 and S2 are normal, no murmur Gastrointestinal: Abdomen is soft and obese, non distended, non tender, BS present. Musculoskeletal: No edema. No joint deformities. RUE 5/5, LUE 5/5, BLE 5/5 Neurologic: No focal neurological deficit. Mental Status: A&O x3, normal affect Skin: Warm, dry Assessment/plan: 20-year-old female with history of frequent visits to the hospital due to cannabis hyperemesis syndrome presents due to nausea and vomiting for the past 1 week. Admitted to medical unit for observation. # Cannabis hyperemesis syndrome: Advised to quit cannabis use. Zofran IV when necessary. Reglan IV scheduled. PPI. IV hydration. QTC okay. # Hematemesis: Speckle of blood once when throwing up. Likely small Elizabeth- Stokes tear. If no more bleeding occurs I recommend outpatient EGD. If she continues to have hematemesis I discussed the case with Dr Ojeda again this morning recommends that says she has not had any more speckles of blood he will see her in his clinic outpatient and perform an EGD at that time. PPI IV while i npatient and then by mouth upon discharge. # History of positive strep throat: Unable to tolerate by mouth medications. Received 1 dose of ceftriaxone in the emergency department. One dose penicillin 1.2 million units IM. # Elevated blood pressure without prior diagnosis of hypertension: Could be from her distress. Treat conditions above and reevaluate blood pressure. Blood pressure improved she should follow-up with her primary care doctor. Counseled on lifestyle modifications. # Hypokalemia: Replace and monitor. # Tobacco use: Does not want nicotine patch. Counseled to quit. # Reports some anxiety and depression: No suicidal thoughts or plans. F/U with PCP. # DVT prophylaxis: Heparin A Raul Hospitalist Mini KNAPP, I+O Mini KNAPP I+O Laboratory Tests 03/30/20 05:18 Vital Signs Date Time Temp Pulse Resp B/P (MAP) Pulse Ox O2 Delivery O2 Flow Rate FiO2 03/30/20 06:00 97.2 55 18 142/72 (95) 100 Room Air I&O- Last 24 Hours up to 6 AM 03/30/20 06:00 Intake Total 3951 ml Output Total 500 ml Balance 3451 ml YURI FAGAN MD Mar 30, 2020 10:30
[2020-03-30] MEDS: CAPSAICIN 0.025% CR 60 GM TOP PRN (11:16)
[2020-03-30] MEDS ORDERED: POTASSIUM CHLORIDE 10 MEQ SR TABLET PO ONE (14:00)
[2020-03-30] MEDS ORDERED: ZOFR4TAB16 PO (14:13)
== END 2020-03-30 14:16 | disposition home or self-care (01) ==
LOC: M ED 09:08 → M ED INP 12:03 → ENRESERV 12:18 → M MS5PR 13:30
PROVIDERS: ADMIT Family Medicine; ATTEND Family Medicine
DX: F12.188 Cannabis abuse with other cannabis-induced disorder (principal); J02.0 Streptococcal pharyngitis; R03.0 Elevated blood-pressure reading, without diagnosis of hypertension; E87.6 Hypokalemia; F17.218 Nicotine dependence, cigarettes, with other nicotine-induced disorders; F41.9 Anxiety disorder, unspecified; F32.9 Major depressive disorder, single episode, unspecified
CPT/HCPCS: 36415; 80047; 80048; 80076; 81001; 83690; 83735; 84702; 85025; 85027; 85610; 93005; 93041; 96361; 96365; 96372; 96375; 96376; 99284; C9113; J0561; J0696; J2405; J2765

== ENCOUNTER → 2020-04-08 | Outpatient (CLI) | payer OTHER | LOC: M OUTALCOH 09:12 | PROVIDERS: ATTEND Psychiatry & Neurology Addiction Medicine | DX: Z13.39 Encounter for screening examination for other mental health and behavioral disorders (principal); F12.20 Cannabis dependence, uncomplicated ==

== ENCOUNTER → 2020-04-15 | Outpatient (REF) | payer OTHER ==
[2020-04-15 21:07] LABS: APPEARANCE, URINE CLOUDY (CLEAR); BACTERIA, URINE AUTO NEGATIVE (NEGATIVE); BILIRUBIN, URINE AUTO NEGATIVE (NEGATIVE); BLOOD, URINE BLOOD NEGATIVE (NEGATIVE); COLOR, URINE YELLOW (YELLOW); GLUCOSE, URINE (UA) AUTO NEGATIVE (NEGATIVE); KETONE, URINE AUTO NEGATIVE (NEGATIVE); LEUKOCYTE ESTERASE, URINE AUTO 3+ (NEGATIVE); MUCUS, URINE SMALL (NEGATIVE); NITRITE, URINE AUTO NEGATIVE (NEGATIVE); PROTEIN, URINE AUTO NEGATIVE (NEGATIVE); RBC, URINE AUTO 15 /HPF (0-3); SPECIFIC GRAVITY URINE AUTO 1.024 (1.002-1.035); SQUAMOUS EPITHELIAL CELL UR AU 15 /HPF (0-6); UROBILINOGEN, URINE AUTO 0.2 mg/dL (0.0-2.0); WBC, URINE AUTO 6 /HPF (0-3)
== END ==
LOC: M LAB REF 20:37
PROVIDERS: ATTEND Physician Assistant Medical
DX: R30.0 Dysuria (principal)

== ENCOUNTER 2020-04-21 14:49 | Outpatient (RCR) | payer OTHER | END 2020-05-05 | LOC: M OUTALCOH 14:49 | PROVIDERS: ATTEND Psychiatry & Neurology Addiction Medicine | DX: F12.20 Cannabis dependence, uncomplicated (principal); Z72.0 Tobacco use ==

== ENCOUNTER → 2020-04-21 | Outpatient (CLI) | payer OTHER | LOC: M LAB 17:41 | PROVIDERS: ATTEND Psychiatry & Neurology Addiction Medicine | DX: F12.20 Cannabis dependence, uncomplicated (principal) ==

== ENCOUNTER 2020-05-14 08:45 | Outpatient (RCR) | payer OTHER | END 2020-06-05 | LOC: M OUTALCOH 08:45 | PROVIDERS: ATTEND Psychiatry & Neurology Addiction Medicine | DX: F12.20 Cannabis dependence, uncomplicated (principal); Z72.0 Tobacco use ==

== ENCOUNTER → 2020-08-04 | Outpatient (CLI) | payer OTHER | LOC: M OUTALCOH 10:26 | PROVIDERS: ATTEND Psychiatry & Neurology Psychiatry | DX: Z13.39 Encounter for screening examination for other mental health and behavioral disorders (principal); F12.20 Cannabis dependence, uncomplicated ==

== ENCOUNTER → 2020-09-03 | Outpatient (RCR) | payer OTHER | LOC: M OUTALCOH 08-11 16:00 | PROVIDERS: ATTEND Psychiatry & Neurology Psychiatry | DX: F12.20 Cannabis dependence, uncomplicated (principal); Z72.0 Tobacco use ==

== ENCOUNTER 2020-09-10 08:45 | Outpatient (RCR) | payer OTHER | END 2020-10-03 | LOC: M OUTALCOH 08:45 | PROVIDERS: ATTEND Psychiatry & Neurology Psychiatry | DX: F12.20 Cannabis dependence, uncomplicated (principal); Z72.0 Tobacco use ==

== ENCOUNTER → 2020-11-13 | Outpatient (REF) | payer OTHER ==
[2020-11-13 19:02] LABS: HEPATITIS C VIRUS ABY INDEX < 0.0 INDEX (<0.8); HIV 1&2 SCREEN CENTAUR NEGATIVE (NEGATIVE)
== END ==
LOC: M PLALAB 14:14
PROVIDERS: ATTEND Advanced Practice Midwife
DX: Z11.3 Encounter for screening for infections with a predominantly sexual mode of transmission (principal)

== ENCOUNTER → 2020-11-13 | Outpatient (REF) | payer OTHER | LOC: M SFHCWAGY 18:56 | PROVIDERS: ATTEND Advanced Practice Midwife | DX: Z01.419 Encounter for gynecological examination (general) (routine) without abnormal findings (principal); Z12.4 Encounter for screening for malignant neoplasm of cervix ==

== ENCOUNTER → 2021-02-27 | Outpatient (REF) | payer OTHER ==
[2021-02-27 20:19] LABS: GC DNA AMPLIFICATION NEGATIVE (NEGATIVE)
== END ==
LOC: M SFHCWAGY 16:59
PROVIDERS: ATTEND Advanced Practice Midwife
DX: Z11.3 Encounter for screening for infections with a predominantly sexual mode of transmission (principal)

== ENCOUNTER 2021-06-01 17:08 | Emergency (ER) | payer OTHER ==
[~2021-06-01] VITALS: Ht 170.2 cm; Wt 100.2 kg
[2021-06-01 17:08] VITALS: BP 137/81
[~2021-06-01 17:08] MED LIST changes: -PROC10TA4 PO; +PROC10TA5 PO
[2021-06-01 18:26] LABS: RSV AMPLIFICATION NEGATIVE (NEGATIVE)
[2021-06-02] MEDS ORDERED: ZOFR4TAB16 PO (10:49)
== END 2021-06-01 20:07 | disposition left against medical advice (07) ==
LOC: M ED 17:08
DX: Z53.29 Procedure and treatment not carried out because of patient's decision for other reasons (principal)

== ENCOUNTER 2021-06-02 06:12 | Emergency (ER) | payer MEDICAID, OTHER ==
[~2021-06-02] VITALS: Ht 170.2 cm; Wt 99.8 kg
[~2021-06-02 06:12] MED LIST changes: +PROC10TA4 PO; -PROC10TA5 PO
[2021-06-02] MEDS ORDERED: KETOROLAC 30 MG/ML 1ML VIAL IV ONE (06:55)
[2021-06-02] MEDS ORDERED: NS 1,000 ML IV ONE (06:55)
[2021-06-02] MEDS ORDERED: METOCLOPRAMIDE INJ 10MG/2ML VIAL (J2765 PER 1) IV ONE (07:00)
[2021-06-02 07:29] LABS: BASO % 0.2 % (0.0-1.0); HEMATOCRIT 38.1 % (36.0-47.0); HEMOGLOBIN 13.4 g/dl (12.0-15.5); LYMPH # 1.5 10^3/uL (1.5-5.0); LYMPH % 9.6 % (24.0-44.0); MEAN CORPUSCULAR HEMOGLOBIN 32.3 pg (27.0-33.0); MEAN CORPUSCULAR HGB CONC 35.2 g/dl (32.0-36.5); MEAN CORPUSCULAR VOLUME 91.8 fl (80.0-96.0); MONO # 0.8 10^3/uL (0.0-0.8); MONO % 5.2 % (2.0-8.0); NEUTROPHILS # 12.9 10^3/uL (1.5-8.5); NEUTROPHILS % 84.5 % (36.0-66.0); PLATELET COUNT, AUTOMATED 328 10^3/uL (150-450); RED BLOOD COUNT 4.15 10^6/uL (4.00-5.40); WHITE BLOOD COUNT 15.3 10^3/uL (4.0-10.0)
[2021-06-02 07:55] LABS: BLOOD UREA NITROGEN 23 MG/DL (7-18); CALCIUM LEVEL 10.1 MG/DL (8.5-10.1); CARBON DIOXIDE LEVEL 22 MEQ/L (21-32); CHLORIDE LEVEL 108 MEQ/L (98-107); CREATININE FOR GFR 1.02 MG/DL (0.55-1.30); GLOMERULAR FILTRATION RATE > 60.0 (>60); GLUCOSE, FASTING 105 MG/DL (70-100); POTASSIUM SERUM 3.6 MEQ/L (3.5-5.1); SODIUM LEVEL 141 MEQ/L (136-145)
[2021-06-02 07:57] LABS: HCG, SERUM QUALITATIVE NEGATIVE (NEGATIVE)
[2021-06-02 07:59] LABS: MB/CK RELATIVE INDEX 0.88 (< OR =4)
[2021-06-02] MEDS ORDERED: ONDANSETRON 4MG/2ML VIAL IV ONE (08:20)
[2021-06-02] MEDS ORDERED: ISOVUE-370 76% 100ML VIAL As Ordered ONE (08:22)
--- NOTE | 2021-06-02 08:23 | REP ---
INDICATION: chest pain COMPARISON: None. TECHNIQUE: PA and lateral. FINDINGS: The mediastinum and cardiac silhouette are normal. The lung escalante are clear and without acute consolidation, effusion, or pneumothorax. The skeletal structures are intact and normal. IMPRESSION: No acute cardiopulmonary process. <Electronically signed by Tyler Pillai > 06/02/21 [id number]
[2021-06-02 08:41] LABS: ALBUMIN 4.3 GM/DL (3.2-5.2); ALT/SGPT 19 U/L (12-78); BILIRUBIN,DIRECT 0.3 MG/DL (0.0-0.2); BILIRUBIN,TOTAL 1.1 MG/DL (0.2-1.0); TOTAL PROTEIN 8.5 GM/DL (6.4-8.2)
--- NOTE | 2021-06-02 08:44 | REP ---
INDICATION: abdominal pain 5 days/02/13 pain generalize/ N/V. COMPARISON: 03/26/2020 TECHNIQUE: Axial contrast-enhanced images from the lung bases to the pubic symphysis using 100 cc Isovue 370 intravenous contrast material. Coronal and sagittal reformations obtained. This CT examination was performed using the following dose reduction techniques: Automated exposure control, adjustment of mA and/or kv according to the patient's size, and the use of iterative reconstruction technique. FINDINGS: Liver, spleen, pancreas, gallbladder, bilateral adrenal glands and kidneys are normal. The enteric system is grossly normal in appearance and without obstruction or obvious acute inflammatory process. A normal terminal ileum and appendix are identified in the right mid to lower abdomen. Motion artifact through the pelvis limits evaluation of small and large bowel. The sigmoid colon beyond the point of motion artifact into the rectosigmoid demonstrates few scattered diverticula without acute diverticulitis.. Pelvis demonstrates normal bladder and age-appropriate uterus/adnexa. No ascites. No free air. No intraperitoneal or retroperitoneal adenopathy. Abdominal aorta and vasculature appear normal. Musculoskeletal structures are intact and without acute osseous abnormality. IMPRESSION: No acute abdominopelvic pathology appreciated. <Electronically signed by Tyler Pillai > 06/02/21 [id number]
[2021-06-02] MEDS ORDERED: HALOPERIDOL 5MG/ML VIAL (J1630 PER 1) IV ONE (09:30)
[2021-06-02] MEDS ORDERED: ZOFR4TAB16 PO (10:49)
[2021-06-02 10:55] VITALS: BP 141/86
--- NOTE | 2021-06-02 13:33 | ECGEPIP ---
[facility] - ED Test Date: 2021-06-02 Pat Name: HUI BROWN Department: Room: - Gender: Female [employer] Facilities Manager: YOLANDAOLGA : 2000 Requested By: JAMIL Stanton PA-C Order Number: [id number] Reading MD: Zaynab Kumar Measurements Intervals [place] Rate: 50 P: 40 AR: 122 QRS: 39 QRSD: 90 T: 28 QT: 446 QTc: 406 Interpretive Statements Sinus bradycardia irbb similar 03/29/20 Electronically Signed on 06-02-2021 13:33:00 EST by Zaynab Kumar
== END 2021-06-02 11:13 | disposition home or self-care (01) ==
LOC: M ED 06:12
DX: E86.0 Dehydration (principal); F12.288 Cannabis dependence with other cannabis-induced disorder; F17.210 Nicotine dependence, cigarettes, uncomplicated
CPT/HCPCS: 71046; 74177; 80048; 80076; 82550; 82553; 83690; 84702; 84703; 85025; 93005; 93041; 94760; 96361; 96374; 96375; 99285; J1630; J1885; J2405; J2765; Q9967

== ENCOUNTER → 2021-06-03 | Outpatient (REF) | payer OTHER | LOC: M LAB REF 10:40 | PROVIDERS: ATTEND Physician Assistant | DX: J02.9 Acute pharyngitis, unspecified (principal) ==

== ENCOUNTER 2021-07-16 07:03 | Emergency (ER) | payer OTHER ==
[~2021-07-16] VITALS: Ht 170.2 cm; Wt 102.0 kg
[~2021-07-16 07:03] MED LIST changes: -PROC10TA4 PO; +PROC10TA5 PO
[2021-07-16] MEDS ORDERED: ONDANSETRON 4 MG ORAL DISINTEGRATING TAB PO ONE (07:45)
[2021-07-16] MEDS ORDERED: NS 1,000 ML IV ONE (08:45)
[2021-07-16] MEDS ORDERED: KETOROLAC 30 MG/ML 1ML VIAL IV ONE (08:45)
[2021-07-16] MEDS ORDERED: ONDANSETRON 4MG/2ML VIAL IV ONE (08:45)
[2021-07-16 09:28] LABS: BASO % 0.1 % (0.0-1.0); HEMATOCRIT 39.7 % (36.0-47.0); HEMOGLOBIN 13.6 g/dl (12.0-15.5); LYMPH # 1.1 10^3/uL (1.5-5.0); LYMPH % 7.9 % (24.0-44.0); MEAN CORPUSCULAR HEMOGLOBIN 32.2 pg (27.0-33.0); MEAN CORPUSCULAR HGB CONC 34.3 g/dl (32.0-36.5); MEAN CORPUSCULAR VOLUME 94.1 fl (80.0-96.0); MONO # 0.8 10^3/uL (0.0-0.8); MONO % 5.5 % (2.0-8.0); NEUTROPHILS # 11.7 10^3/uL (1.5-8.5); NEUTROPHILS % 86.1 % (36.0-66.0); PLATELET COUNT, AUTOMATED 374 10^3/uL (150-450); RED BLOOD COUNT 4.22 10^6/uL (4.00-5.40); WHITE BLOOD COUNT 13.6 10^3/uL (4.0-10.0)
[2021-07-16] MEDS ORDERED: ISOVUE-370 76% 100ML VIAL As Ordered ONE (09:28)
[2021-07-16 09:49] LABS: ALBUMIN 4.4 GM/DL (3.2-5.2); BILIRUBIN,DIRECT 0.3 MG/DL (0.0-0.2); BILIRUBIN,TOTAL 0.9 MG/DL (0.2-1.0); TOTAL PROTEIN 8.3 GM/DL (6.4-8.2)
[2021-07-16] MEDS ORDERED: PROMETHAZINE INJ 25 MG/ML VIAL (J2550) IV ONE (10:30)
[2021-07-16] MEDS ORDERED: HALOPERIDOL 5MG/ML VIAL (J1630 PER 1) IV ONE (12:15)
[2021-07-16] MEDS ORDERED: PROM25TA12 PO (13:09)
[2021-07-16] MEDS ORDERED: PROM25SU3 PR (13:09)
[2021-07-16 13:35] VITALS: BP 156/82
== END 2021-07-16 13:38 | disposition home or self-care (01) ==
LOC: M ED 07:03
DX: R10.84 Generalized abdominal pain (principal); R11.2 Nausea with vomiting, unspecified; F17.200 Nicotine dependence, unspecified, uncomplicated
CPT/HCPCS: 74177; 80047; 80076; 81001; 83690; 84702; 85025; 87804; 96361; 96374; 96375; 99284; J1630; J1885; J2405; Q0162; Q9967

== ENCOUNTER → 2021-08-11 | Outpatient (REF) | payer OTHER ==
[~2021-08-11] MED LIST changes: +PROM25SU3 PR; +PROM25TA12 PO
== END ==
LOC: M PLALAB 14:56
PROVIDERS: ATTEND Advanced Practice Midwife
DX: Z53.9 Procedure and treatment not carried out, unspecified reason (principal)

== ENCOUNTER → 2021-08-11 | Outpatient (CLI) | payer OTHER ==
[2021-08-11 18:38] LABS: HEPATITIS B SURFACE ANTIGEN NEGATIVE (NEGATIVE); HEPATITIS C VIRUS ABY INDEX 0.1 INDEX (<0.8); HIV 1&2 SCREEN CENTAUR NEGATIVE (NEGATIVE)
== END ==
LOC: M PLALAB 14:14
PROVIDERS: ATTEND Advanced Practice Midwife
DX: Z11.3 Encounter for screening for infections with a predominantly sexual mode of transmission (principal)

== ENCOUNTER 2021-10-12 01:46 | Emergency (ER) | payer OTHER ==
[~2021-10-12] VITALS: Ht 170.2 cm; Wt 86.4 kg
[2021-10-12] MEDS ORDERED: SERT25TA21 PO (02:26)
[2021-10-12 03:48] LABS: HEMATOCRIT 38.9 % (36.0-47.0); HEMOGLOBIN 13.2 g/dl (12.0-15.5); MEAN CORPUSCULAR HEMOGLOBIN 31.4 pg (27.0-33.0); MEAN CORPUSCULAR HGB CONC 33.9 g/dl (32.0-36.5); MEAN CORPUSCULAR VOLUME 92.6 fl (80.0-96.0); PLATELET COUNT, AUTOMATED 253 10^3/uL (150-450); WHITE BLOOD COUNT 11.3 10^3/uL (4.0-10.0)
[2021-10-12] MEDS ORDERED: HOME MED LIST COMPLETE! XX SCH (04:00)
[2021-10-12 04:13] LABS: HCG, SERUM QUALITATIVE NEGATIVE (NEGATIVE)
[2021-10-12 04:14] LABS: AMPHETAMINES LEVEL URINE NEGATIVE (NEGATIVE); BARBITURATES URINE NEGATIVE (NEGATIVE); BENZODIAZEPINES URINE NEGATIVE (NEGATIVE); CANNABINOIDS URINE POSITIVE (NEGATIVE); COCAINE METABOLITE URINE NEGATIVE (NEGATIVE); METHADONE URINE NEGATIVE (NEGATIVE); OPIATES URINE NEGATIVE (NEGATIVE); PHENCYCLIDINE URINE NEGATIVE (NEGATIVE)
[2021-10-12 04:25] LABS: ACETAMINOPHEN LEVEL < 2.0 UG/ML (10.0-30.0); ALBUMIN 3.7 GM/DL (3.2-5.2); ALT/SGPT 44 U/L (12-78); BILIRUBIN,DIRECT < 0.1 MG/DL (0.0-0.2); BILIRUBIN,TOTAL 0.2 MG/DL (0.2-1.0); BLOOD UREA NITROGEN 17 MG/DL (7-18); CARBON DIOXIDE LEVEL 24 MEQ/L (21-32); CHLORIDE LEVEL 109 MEQ/L (98-107); CREATININE FOR GFR 0.88 MG/DL (0.55-1.30); ETHYL ALCOHOL (ETHANOL) < 0.003 % (0.000-0.010); GLOMERULAR FILTRATION RATE > 60.0 (>60); GLUCOSE, FASTING 83 MG/DL (70-100); POTASSIUM SERUM 4.1 MEQ/L (3.5-5.1); SALICYLATE LEVEL 1.8 MG/DL (5.0-30.0); SODIUM LEVEL 139 MEQ/L (136-145); TOTAL PROTEIN 7.4 GM/DL (6.4-8.2)
[2021-10-12] MEDS ORDERED: BACITRACIN OINTMENT 30GM TUBE TOP ONE (06:45)
[2021-10-12 06:55] VITALS: BP 122/56
== END 2021-10-12 07:10 | disposition home or self-care (01) ==
LOC: M ED 01:46
DX: F43.0 Acute stress reaction (principal); S60.811A Abrasion of right wrist, initial encounter; S60.812A Abrasion of left wrist, initial encounter; X78.9XXA Intentional self-harm by unspecified sharp object, initial encounter; Y92.9 Unspecified place or not applicable; Y93.9 Activity, unspecified; Y99.9 Unspecified external cause status; F32.A Depression, unspecified

== ENCOUNTER 2021-11-07 10:14 | Emergency (ER) | payer OTHER ==
[~2021-11-07] VITALS: Ht 170.2 cm; Wt 108.7 kg
[~2021-11-07 10:14] MED LIST changes: +SERT25TA21 PO
[2021-11-07] MEDS ORDERED: MULTTAB20 PO (10:32)
[2021-11-07 11:13] LABS: BASO % 0.4 % (0.0-1.0); EOS # 0.1 10^3/uL (0.0-0.5); EOS % 1.1 % (0.0-3.0); HEMATOCRIT 37.6 % (36.0-47.0); HEMOGLOBIN 12.7 g/dl (12.0-15.5); LYMPH # 1.6 10^3/uL (1.5-5.0); LYMPH % 19.5 % (24.0-44.0); MEAN CORPUSCULAR HEMOGLOBIN 30.5 pg (27.0-33.0); MEAN CORPUSCULAR HGB CONC 33.8 g/dl (32.0-36.5); MEAN CORPUSCULAR VOLUME 90.4 fl (80.0-96.0); MONO # 0.5 10^3/uL (0.0-0.8); MONO % 6.1 % (2.0-8.0); NEUTROPHILS # 6.1 10^3/uL (1.5-8.5); NEUTROPHILS % 72.5 % (36.0-66.0); PLATELET COUNT, AUTOMATED 262 10^3/uL (150-450); RED BLOOD COUNT 4.16 10^6/uL (4.00-5.40); WHITE BLOOD COUNT 8.4 10^3/uL (4.0-10.0)
[2021-11-07 11:54] LABS: BLOOD UREA NITROGEN 8 MG/DL (7-18); CALCIUM LEVEL 9.3 MG/DL (8.5-10.1); CARBON DIOXIDE LEVEL 24 MEQ/L (21-32); CHLORIDE LEVEL 107 MEQ/L (98-107); CREATININE FOR GFR 0.86 MG/DL (0.55-1.30); GLOMERULAR FILTRATION RATE > 60.0 (>60); GLUCOSE, FASTING 102 MG/DL (70-100); HCG, SERUM QUANTITATIVE 49271 MIU/ML; POTASSIUM SERUM 3.9 MEQ/L (3.5-5.1); SODIUM LEVEL 137 MEQ/L (136-145)
[2021-11-07 13:35] VITALS: BP 134/88
== END 2021-11-07 14:05 | disposition home or self-care (01) ==
LOC: M ED 10:14
DX: O46.91 Antepartum hemorrhage, unspecified, first trimester (principal); O99.341 Other mental disorders complicating pregnancy, first trimester; Z3A.01 Less than 8 weeks gestation of pregnancy; Z79.899 Other long term (current) drug therapy

== ENCOUNTER → 2021-11-12 | Outpatient (REF) | payer OTHER ==
[~2021-11-12] MED LIST changes: +MULTTAB20 PO
[2021-11-12 13:08] LABS: HEMATOCRIT 36.7 % (36.0-47.0); HEMOGLOBIN 12.6 g/dl (12.0-15.5); MEAN CORPUSCULAR HEMOGLOBIN 31.1 pg (27.0-33.0); MEAN CORPUSCULAR HGB CONC 34.3 g/dl (32.0-36.5); MEAN CORPUSCULAR VOLUME 90.6 fl (80.0-96.0); PLATELET COUNT, AUTOMATED 264 10^3/uL (150-450); RED BLOOD COUNT 4.05 10^6/uL (4.00-5.40); WHITE BLOOD COUNT 6.7 10^3/uL (4.0-10.0)
[2021-11-12 14:06] LABS: HCG, SERUM QUANTITATIVE 67467 MIU/ML; HEPATITIS B SURFACE ANTIGEN NEGATIVE (NEGATIVE)
[2021-11-12 14:26] LABS: HEPATITIS C VIRUS ABY INDEX 0.1 INDEX (<0.8)
[2021-11-12 14:27] LABS: HIV 1&2 SCREEN CENTAUR NEGATIVE (NEGATIVE)
== END ==
LOC: M LAB REF 12:18
PROVIDERS: ATTEND Obstetrics & Gynecology
DX: Z32.01 Encounter for pregnancy test, result positive (principal)

== ENCOUNTER 2022-03-06 12:24 | Outpatient (CLI) | payer OTHER ==
[~2022-03-06] VITALS: Ht 170.2 cm; Wt 118.7 kg
[2022-03-06 12:45] VITALS: BP 123/72
[2022-03-06] MEDS ORDERED: HOME MED LIST COMPLETE! XX SCH (12:50)
[2022-03-06 13:16] VITALS: BP 118/59
[2022-03-06 15:08] VITALS: BP 132/61
== END 2022-03-06 15:13 | disposition home or self-care (01) ==
LOC: M LDO 12:24
PROVIDERS: ATTEND Obstetrics & Gynecology
DX: O9A.212 Injury, poisoning and certain other consequences of external causes complicating pregnancy, second trimester (principal); S20.211A Contusion of right front wall of thorax, initial encounter; W10.8XXA Fall (on) (from) other stairs and steps, initial encounter; Y92.009 Unspecified place in unspecified non-institutional (private) residence as the place of occurrence of the external cause; Z3A.23 23 weeks gestation of pregnancy

== ENCOUNTER 2022-04-01 09:02 | Outpatient (CLI) | payer OTHER ==
[2022-04-01] VITALS (8 sets, daily range): BP systolic 101–183; BP diastolic 47–94
[~2022-04-01] VITALS: Ht 170.2 cm; Wt 114.5 kg
[2022-04-01] MEDS ORDERED: ONDA-83 PO (09:29)
[2022-04-01] MEDS ORDERED: HOME MED LIST COMPLETE! XX SCH (09:30)
[2022-04-01] MEDS ORDERED: LACTATED RINGER'S 1000 ML IV STA (09:42)
[2022-04-01 10:15] LABS: BASO % 0.1 % (0.0-1.0); HEMATOCRIT 29.9 % (36.0-47.0); HEMOGLOBIN 10.5 g/dl (12.0-15.5); LYMPH % 5.6 % (24.0-44.0); MEAN CORPUSCULAR HEMOGLOBIN 33.1 pg (27.0-33.0); MEAN CORPUSCULAR HGB CONC 35.1 g/dl (32.0-36.5); MEAN CORPUSCULAR VOLUME 94.3 fl (80.0-96.0); MONO # 0.4 10^3/uL (0.0-0.8); MONO % 2.2 % (2.0-8.0); NEUTROPHILS % 91.2 % (36.0-66.0); PLATELET COUNT, AUTOMATED 282 10^3/uL (150-450); RED BLOOD COUNT 3.17 10^6/uL (4.00-5.40); WHITE BLOOD COUNT 18.7 10^3/uL (4.0-10.0)
[2022-04-01] MEDS ORDERED: PROMETHAZINE 25MG/ML 1ML VIAL IV ONE ×2 (10:30→13:30)
[2022-04-01 10:56] LABS: ALBUMIN 3.1 GM/DL (3.2-5.2); ALT/SGPT 19 U/L (12-78); BILIRUBIN,TOTAL 0.6 MG/DL (0.2-1.0); BLOOD UREA NITROGEN 6 MG/DL (7-18); CALCIUM LEVEL 9.4 MG/DL (8.5-10.1); CARBON DIOXIDE LEVEL 17 MEQ/L (21-32); CHLORIDE LEVEL 109 MEQ/L (98-107); GLOMERULAR FILTRATION RATE > 60.0 (>60); GLUCOSE, FASTING 128 MG/DL (70-100); POTASSIUM SERUM 3.7 MEQ/L (3.5-5.1); SODIUM LEVEL 140 MEQ/L (136-145); TOTAL PROTEIN 6.7 GM/DL (6.4-8.2)
[2022-04-01] MEDS: LR 1,000 ML IV SCH ×2 (11:06→19:09)
[2022-04-01 16:28] LABS: APPEARANCE, URINE MANUAL CLEAR (CLEAR); BILIRUBIN, URINE MANUAL NEGATIVE (NEGATIVE); BLOOD URINE MANUAL TRACE (NEGATIVE); COLOR, URINE MANUAL YELLOW (YELLOW); GLUCOSE, URINE (UA) MANUAL NEGATIVE (NEGATIVE); KETONE, URINE MANUAL 3+ mg/dL (NEGATIVE); LEUKOCYTE ESTERASE, URINE MAN NEGATIVE (NEGATIVE); NITRITE, URINE MANUAL NEGATIVE (NEGATIVE); PROTEIN, URINE MANUAL 1+ mg/dL (NEGATIVE); UROBILINOGEN, URINE MANUAL NORMAL (NORMAL)
[2022-04-01 17:06] LABS: AMPHETAMINES URINE REFLEX NEGATIVE (NEGATIVE); BARBITURATES URINE REFLEX NEGATIVE (NEGATIVE); BENZODIAZEPINES URINE REFLEX NEGATIVE (NEGATIVE); COCAINE METABOLITE URINE REFLE NEGATIVE (NEGATIVE); METHADONE URINE REFLEX NEGATIVE (NEGATIVE); OPIATES URINE REFLEX NEGATIVE (NEGATIVE); PHENCYCLIDINE URINE REFLEX NEGATIVE (NEGATIVE)
[2022-04-01 17:15] LABS: CANNABINOIDS URINE REFLEX PENDING CONFIRMATION (NEGATIVE)
[2022-04-01 18:15] LABS: BACTERIA, URINE MOD AMOUNT; SQUAMOUS EPITHELIAL CELL URINE MOD AMOUNT /hpf (SMALL AMT)
[2022-04-01] MEDS ORDERED: PANTOPRAZOLE 40MG VIAL IV SCH (20:00)
[2022-04-01] MEDS ORDERED: METOCLOPRAMIDE INJ 10MG/2ML VIAL (J2765 PER 1) IV SCH (20:00)
[2022-04-02] MEDS: KCL 20MEQ IN D5/0.45NS 1000ML 1,000 ML IV SCH ×2 (01:10→10:42)
[2022-04-02] MEDS: PROMETHAZINE 25MG/ML 1ML VIAL IV PRN ×2 (01:23→08:09)
[2022-04-02 02:04] VITALS: BP 115/58
[2022-04-02 05:45] VITALS: BP 132/72
[2022-04-02 06:39] LABS: BASO % 0.1 % (0.0-1.0); HEMOGLOBIN 8.8 g/dl (12.0-15.5); LYMPH # 1.1 10^3/uL (1.5-5.0); LYMPH % 8.4 % (24.0-44.0); MEAN CORPUSCULAR HEMOGLOBIN 32.6 pg (27.0-33.0); MEAN CORPUSCULAR HGB CONC 33.8 g/dl (32.0-36.5); MEAN CORPUSCULAR VOLUME 96.3 fl (80.0-96.0); MONO # 0.6 10^3/uL (0.0-0.8); MONO % 4.4 % (2.0-8.0); NEUTROPHILS # 11.6 10^3/uL (1.5-8.5); NEUTROPHILS % 85.8 % (36.0-66.0); PLATELET COUNT, AUTOMATED 243 10^3/uL (150-450); WHITE BLOOD COUNT 13.5 10^3/uL (4.0-10.0)
[2022-04-02 07:10] LABS: ALBUMIN 2.8 GM/DL (3.2-5.2); ALT/SGPT 14 U/L (12-78); BILIRUBIN,TOTAL 0.7 MG/DL (0.2-1.0); BLOOD UREA NITROGEN 6 MG/DL (7-18); CALCIUM LEVEL 8.7 MG/DL (8.5-10.1); CARBON DIOXIDE LEVEL 20 MEQ/L (21-32); CHLORIDE LEVEL 112 MEQ/L (98-107); CREATININE FOR GFR 0.59 MG/DL (0.55-1.30); GLOMERULAR FILTRATION RATE > 60.0 (>60); GLUCOSE, FASTING 131 MG/DL (70-100); POTASSIUM SERUM 3.4 MEQ/L (3.5-5.1); SODIUM LEVEL 142 MEQ/L (136-145); TOTAL PROTEIN 5.7 GM/DL (6.4-8.2)
[2022-04-02 08:00] VITALS: BP 132/72
[2022-04-12 23:10] LABS: Cannabinoid Positive (.); Carboxy THC Conf, MS, UR 316 ng/mL (Cutoff=10)
== END 2022-04-02 11:30 | disposition home or self-care (01) ==
LOC: M LDO 09:02 → M OBS 19:20 → M LDO 04-02 11:30
PROVIDERS: ATTEND Specialist
DX: O21.8 Other vomiting complicating pregnancy (principal); O26.892 Other specified pregnancy related conditions, second trimester; Z3A.27 27 weeks gestation of pregnancy
CPT/HCPCS: 36415; 59025; 71045; 80053; 80307; 83605; 85025; 87040; 87086; 96360; 96361; 96374; 96375; 96376; C9113; G0480; J2550; J2765

== ENCOUNTER → 2022-04-21 | Outpatient (CLI) | payer OTHER ==
[~2022-04-21] MED LIST changes: +ONDA-83 PO
[2022-04-21 16:33] LABS: HEMATOCRIT 33.7 % (36.0-47.0); HEMOGLOBIN 11.1 g/dl (12.0-15.5); MEAN CORPUSCULAR HEMOGLOBIN 32.3 pg (27.0-33.0); MEAN CORPUSCULAR HGB CONC 32.9 g/dl (32.0-36.5); PLATELET COUNT, AUTOMATED 273 10^3/uL (150-450); RED BLOOD COUNT 3.44 10^6/uL (4.00-5.40); WHITE BLOOD COUNT 10.4 10^3/uL (4.0-10.0)
== END ==
LOC: M WUC 14:36
PROVIDERS: ATTEND Obstetrics & Gynecology
DX: Z34.02 Encounter for supervision of normal first pregnancy, second trimester (principal)

== ENCOUNTER 2022-05-02 16:30 | Outpatient (CLI) | payer OTHER ==
[~2022-05-02] VITALS: Ht 170.2 cm; Wt 117.0 kg
[2022-05-02 16:46] VITALS: BP 165/86
[2022-05-02] MEDS ORDERED: LACTATED RINGER'S 1000 ML IV STA (16:51)
[2022-05-02] MEDS ORDERED: LR 1,000 ML IV SCH (16:55)
[2022-05-02] MEDS ORDERED: ACETAMINOPHEN 500 MG TAB PO PRN (16:55)
[2022-05-02 17:11] VITALS: BP 132/69
[2022-05-02 17:16] LABS: HEMATOCRIT 32.4 % (36.0-47.0); HEMOGLOBIN 11.1 g/dl (12.0-15.5); MEAN CORPUSCULAR HEMOGLOBIN 32.4 pg (27.0-33.0); MEAN CORPUSCULAR HGB CONC 34.3 g/dl (32.0-36.5); MEAN CORPUSCULAR VOLUME 94.5 fl (80.0-96.0); PLATELET COUNT, AUTOMATED 347 10^3/uL (150-450); RED BLOOD COUNT 3.43 10^6/uL (4.00-5.40); WHITE BLOOD COUNT 22.9 10^3/uL (4.0-10.0)
[2022-05-02] MEDS: PROMETHAZINE 25MG/ML 1ML VIAL IV PRN ×2 (17:25→22:43)
[2022-05-02] MEDS ORDERED: HOME MED LIST COMPLETE! XX SCH (17:45)
[2022-05-02 17:53] LABS: ALT/SGPT 14 U/L (7.0-40); AST/SGOT 17 U/L (<34); BILIRUBIN,TOTAL 0.6 MG/DL (0.3-1.2); CREATININE FOR GFR 0.56 MG/DL (0.55-1.30); GLOMERULAR FILTRATION RATE > 60.0 (>60); LDH LACTATE DEHYDROGENASE 146 U/L (120-246); URIC ACID 9.4 MG/DL (3.1-7.8)
[2022-05-02 19:25] VITALS: BP 125/66
[2022-05-02 21:07] LABS: CREATININE,RANDOM URINE 128.8 MG/DL
[2022-05-02 21:52] LABS: PROTEIN, URINE AUTO TRACE mg/dL (NEGATIVE)
[2022-05-02 22:04] LABS: APPEARANCE, URINE MANUAL CLEAR (CLEAR); COLOR, URINE MANUAL YELLOW (YELLOW); PROTEIN, URINE MANUAL TRACE mg/dL (NEGATIVE); SPECIFIC GRAVITY,URINE MANUAL 1.025 (1.002-1.035)
[2022-05-02 22:05] LABS: BILIRUBIN, URINE MANUAL NEGATIVE (NEGATIVE); BLOOD URINE MANUAL TRACE (NEGATIVE); GLUCOSE, URINE (UA) MANUAL NEGATIVE (NEGATIVE); KETONE, URINE MANUAL 3+ mg/dL (NEGATIVE); NITRITE, URINE MANUAL NEGATIVE (NEGATIVE); UROBILINOGEN, URINE MANUAL NORMAL (NORMAL)
[2022-05-02 22:07] LABS: LEUKOCYTE ESTERASE, URINE MAN TRACE (NEGATIVE)
[2022-05-02 22:12] LABS: TOTAL PROTEIN,RANDOM URINE 81.4 MG/DL (0.0-14.0)
[2022-05-02 22:23] LABS: WBC, URINE 0-1 /hpf (0-3)
[2022-05-02 22:24] LABS: BACTERIA, URINE SMALL AMOUNT; SQUAMOUS EPITHELIAL CELL URINE SMALL AMOUNT /hpf (SMALL AMT)
[2022-05-02] MEDS ORDERED: LR 1,000 ML IV ONE (22:30)
[2022-05-02] MEDS ORDERED: ONDANSETRON 4MG 2ML VIAL IV PRN (22:30)
[2022-05-02 22:44] VITALS: BP 121/67
[2022-05-03] MEDS ORDERED: PROCHLORPERAZINE 10MG 2ML VIAL IV PRN (01:05)
[2022-05-03] MEDS: CHLORASEPTIC SPRAY MT PRN ×2 (01:30→03:47)
[2022-05-03 03:03] LABS: INFLUENZA A AMPLIFICATION NEGATIVE (NEGATIVE); INFLUENZA B AMPLIFICATION NEGATIVE (NEGATIVE)
== END 2022-05-03 04:20 | disposition home or self-care (01) ==
LOC: M LDO 16:30
PROVIDERS: ATTEND Obstetrics & Gynecology
DX: O21.8 Other vomiting complicating pregnancy (principal); Z3A.31 31 weeks gestation of pregnancy
CPT/HCPCS: 59025; 76705; 81000; 82247; 82565; 82570; 83615; 84156; 84450; 84460; 84550; 85027; 87631; 87635; 96360; 96361; 96374; 96375; 96376; J0780; J2405; J2550

== ENCOUNTER → 2022-06-03 | Outpatient (REF) | payer OTHER, MEDICAID | LOC: M LAB REF 16:58 | PROVIDERS: ATTEND Obstetrics & Gynecology | DX: Z34.83 Encounter for supervision of other normal pregnancy, third trimester (principal) ==

== ENCOUNTER 2022-06-30 13:37 | Outpatient (CLI) | payer OTHER, MEDICAID ==
[~2022-06-30] VITALS: Ht 170.2 cm; Wt 119.2 kg
[2022-06-30 14:05] VITALS: BP 116/58
[2022-06-30 14:30] VITALS: BP 123/78
[2022-06-30] MEDS ORDERED: HOME MED LIST COMPLETE! XX SCH (14:50)
== END 2022-06-30 14:41 | disposition home or self-care (01) ==
LOC: M LDO 13:37
PROVIDERS: ATTEND Advanced Practice Midwife
DX: O36.8130 Decreased fetal movements, third trimester, not applicable or unspecified (principal); Z3A.40 40 weeks gestation of pregnancy

== ENCOUNTER 2022-07-05 12:00 | Inpatient (IN) | payer OTHER, MEDICAID ==
[~2022-07-05] VITALS: Ht 170.2 cm; Wt 120.6 kg
[2022-07-05] VITALS (13 sets, daily range): BP systolic 106–139; BP diastolic 56–87
[2022-07-05] MEDS ORDERED: HOME MED LIST COMPLETE! XX SCH (12:20)
[2022-07-05] MEDS ORDERED: LACTATED RINGER'S 1000 ML IV STA (13:03)
[2022-07-05] MEDS ORDERED: METHYLERGONOVINE MALEATE 0.2MG/ML 1ML VIAL IM PRN (13:05)
[2022-07-05] MEDS ORDERED: OXYTOCIN DRIP 30 UNITS in IV 1 EA IV PRN (13:05)
[2022-07-05] MEDS ORDERED: CARBOPROST TROMETHAMINE 250 MCG/ML AMP IM PRN (13:05)
[2022-07-05] MEDS ORDERED: LIDOCAINE 1% MDV 20ML VIAL INFIL PRN (13:05)
[2022-07-05] MEDS ORDERED: OXYTOCIN INJ 10UNITS/ML 1ML VIAL IM PRN (13:05)
[2022-07-05] MEDS ORDERED: TRANEXAMIC ACID INJection 1,000 MG in NS 100 ML IV PRN (13:05)
[2022-07-05 13:35] LABS: HEMATOCRIT 34.4 % (36.0-47.0); HEMOGLOBIN 11.3 g/dl (12.0-15.5); MEAN CORPUSCULAR HEMOGLOBIN 31.9 pg (27.0-33.0); MEAN CORPUSCULAR HGB CONC 32.8 g/dl (32.0-36.5); MEAN CORPUSCULAR VOLUME 97.2 fl (80.0-96.0); PLATELET COUNT, AUTOMATED 283 10^3/uL (150-450); RED BLOOD COUNT 3.54 10^6/uL (4.00-5.40); WHITE BLOOD COUNT 7.7 10^3/uL (4.0-10.0)
[2022-07-05] MEDS: miSOPROStol 50MCG 1/2 TABLET PO SCH ×2 (14:44→19:12)
[2022-07-05] MEDS ORDERED: OXYTOCIN DRIP 30 UNITS in IV 1 EA IV SCH (22:05)
[2022-07-05] MEDS ORDERED: LR 500 ML IV PRN (23:25)
[2022-07-05] MEDS ORDERED: EPIDURAL/PCA KEYS XX PRN (23:25)
[2022-07-05] MEDS ORDERED: ONDANSETRON 4MG 2ML VIAL IV PRN (23:25)
[2022-07-05] MEDS ORDERED: NALOXONE INJ 0.4MG/1ML VIAL IV PRN (23:25)
[2022-07-05] MEDS ORDERED: diphenhydrAMINE 50MG/ML VIAL IV PRN (23:25)
[2022-07-05] MEDS: FENTANYL/ROPIVACAINE/NACL BAG 100 ML EPIDURAL SCH (23:51)
[2022-07-06] VITALS (96 sets, daily range): BP systolic 83–174; BP diastolic 44–98
[2022-07-06] MEDS: ePHEDrine SULFATE 25 MG/5 ML(5MG/ML) SYRINGE IVP PRN ×6 (00:29→09:34)
[2022-07-06] MEDS: LR 1,000 ML IV SCH ×3 (00:38→13:20)
[2022-07-06] MEDS: FENTANYL/ROPIVACAINE/NACL BAG 100 ML EPIDURAL SCH (06:27)
[2022-07-06] MEDS ORDERED: ePHEDrine INJ 50MG/ML 1ML VIAL IV PRN (08:00)
[2022-07-06] MEDS ORDERED: ceFAZolin SOD 3 GM IV Place Holder IV ONE (15:15)
[2022-07-06] MEDS ORDERED: BUPIVACAINE HCL 0.25% 10ML VIAL SC ONE (15:15)
[2022-07-06] MEDS ORDERED: BICITRA 30ML SOLN UDC PO ONE (15:15)
[2022-07-06] MEDS ORDERED: ceFAZolin SOD 1 GM in D5W MINI-BAG PLUS 50 ML IV ONE (15:20)
[2022-07-06] MEDS ORDERED: ceFAZolin SOD 2 GM in IV 1 EA IV ONE (15:20)
[2022-07-06] MEDS ORDERED: MORPHINE PRES-FREE INJ 10 MG/10 ML VIAL As Ordered ONE (15:28)
[2022-07-06] MEDS ORDERED: LIDOCAINE 2% W/EPINEPHRINE 20ML VIAL **PRES FREE As Ordered ONE (15:28)
[2022-07-06] MEDS ORDERED: OXYTOCIN 30UNITS IN 0.9% NaCl 500ML IV BAG As Ordered ONE ×2 (15:31→16:57)
[2022-07-06] MEDS ORDERED: ceFAZolin 1GM VIAL As Ordered ONE (15:34)
[2022-07-06] MEDS ORDERED: ceFAZolin 2 GM/D5W 50 ML IV BAG As Ordered ONE (15:34)
[2022-07-06] MEDS ORDERED: ONDANSETRON 4MG 2ML VIAL As Ordered ONE (16:12)
[2022-07-06] MEDS ORDERED: MIDAZOLAM INJ 2MG/2ML VIAL As Ordered ONE (16:16)
[2022-07-06] MEDS ORDERED: ACETAMINOPHEN 1000MG 100ML IV BAG As Ordered ONE (16:22)
[2022-07-06] MEDS ORDERED: KETOROLAC 60MG 2ML VIAL As Ordered ONE (16:22)
[2022-07-06] MEDS ORDERED: PHENYLephrine 500MCG 5ML (100MCG/ML) SYRINGE As Ordered ONE (16:26)
[2022-07-06] MEDS ORDERED: ePHEDrine SULFATE 25 MG/5 ML(5MG/ML) SYRINGE As Ordered ONE (16:26)
[2022-07-06] MEDS ORDERED: OXYTOCIN DRIP 30 UNITS in IV 1 EA IV SCH (17:05)
[2022-07-06] MEDS ORDERED: SIMETHICONE 80MG CHEW TAB PO PRN (17:05)
[2022-07-06] MEDS ORDERED: RHOGAM 300MCG (1500IU) INJ IM SCH (17:05)
[2022-07-06] MEDS ORDERED: DOCUSATE SODIUM 100MG CAPSULE PO PRN (17:05)
[2022-07-06] MEDS ORDERED: oxyCODONE 5MG TAB PO PRN ×3 (17:05→17:30)
[2022-07-06] MEDS ORDERED: ONDANSETRON 4MG 2ML VIAL IV PRN ×2 (17:05→17:30)
[2022-07-06] MEDS ORDERED: METOCLOPRAMIDE INJ 10MG/2ML VIAL IV PRN (17:30)
[2022-07-06] MEDS ORDERED: NALOXONE INJ 0.4MG/1ML VIAL IV PRN ×2 (17:30)
[2022-07-06] MEDS ORDERED: diphenhydrAMINE 50MG/ML VIAL IV PRN (17:30)
[2022-07-06] MEDS: SLF 3 ML SYR IV SCH (17:30)
[2022-07-06] MEDS ORDERED: **NOTE PATIENT COMMENT** MISC XX SCH (17:30)
[2022-07-06] MEDS ORDERED: fentaNYL 100 MCG/2 ML INJECTION IV PRN (17:30)
[2022-07-06] MEDS ORDERED: HYDROMORPHONE HCL 0.5 MG/ 0.5 ML SYRINGE IV PRN (17:30)
[2022-07-06] MEDS: ACETAMINOPHEN 500 MG TAB PO SCH (22:21)
[2022-07-06] MEDS: KETOROLAC 30 MG/ML 1ML VIAL IV SCH (22:22)
[2022-07-07] MEDS: SLF 3 ML SYR IV SCH ×2 (01:30→09:26)
[2022-07-07 02:00] VITALS: BP 143/93
[2022-07-07] MEDS ORDERED: LR 1,000 ML IV ONE ×2 (03:45→09:05)
[2022-07-07] MEDS: ACETAMINOPHEN 500 MG TAB PO SCH ×4 (04:35→22:04)
[2022-07-07] MEDS: KETOROLAC 30 MG/ML 1ML VIAL IV SCH ×2 (04:36→11:03)
[2022-07-07 06:00] VITALS: BP 129/67
[2022-07-07 07:45] LABS: HEMATOCRIT 28.2 % (36.0-47.0); MEAN CORPUSCULAR HEMOGLOBIN 32.3 pg (27.0-33.0); MEAN CORPUSCULAR VOLUME 97.9 fl (80.0-96.0); PLATELET COUNT, AUTOMATED 231 10^3/uL (150-450); RED BLOOD COUNT 2.88 10^6/uL (4.00-5.40); WHITE BLOOD COUNT 15.6 10^3/uL (4.0-10.0)
[2022-07-07 07:59] LABS: HEMOGLOBIN 9.3 g/dl (12.0-15.5)
[2022-07-07] MEDS: PRENATAL VITAMINS CHEWABLE TABLET PO SCH (09:24)
[2022-07-07 10:00] VITALS: BP 115/76
[2022-07-07] MEDS ORDERED: LR 1,000 ML IV SCH (10:25)
[2022-07-07 14:00] VITALS: BP 146/67
[2022-07-07] MEDS ORDERED: METOCLOPRAMIDE INJ 10MG/2ML VIAL IV PRN (17:30)
[2022-07-07 18:02] VITALS: BP 137/87
[2022-07-07] MEDS: IBUPROFEN 600MG TAB PO SCH (18:43)
[2022-07-07 22:00] VITALS: BP 123/59
[2022-07-08] MEDS: IBUPROFEN 600MG TAB PO SCH ×3 (00:15→12:02)
[2022-07-08 02:00] VITALS: BP 127/75
[2022-07-08] MEDS: ACETAMINOPHEN 500 MG TAB PO SCH ×2 (04:00→09:29)
[2022-07-08] MEDS ORDERED: ACETAMINOPHEN 500 MG TAB As Ordered ONE (04:40)
[2022-07-08 05:31] VITALS: BP 128/77
[2022-07-08] MEDS ORDERED: IBUPROFEN 600MG TAB As Ordered ONE (06:39)
[2022-07-08] MEDS ORDERED: OXYC-517 PO (07:44)
[2022-07-08] MEDS ORDERED: COLA100C5 PO (07:44)
[2022-07-08] MEDS ORDERED: IBUP-1022 PO (07:44)
[2022-07-08] MEDS ORDERED: ACET-683 PO (07:44)
[2022-07-08] MEDS: PRENATAL VITAMINS CHEWABLE TABLET PO SCH (08:05)
[2022-07-08] MEDS ORDERED: MEASLES,MUMPS,RUBELLA VACCINE INJ (MMR-II) SC.IMMUN ONE (09:00)
[2022-07-08 10:00] VITALS: BP_SYST 124; BP_SYST 137; BP_DIAS 70; BP_DIAS 74
[2022-07-08] MEDS ORDERED: medroxyPROGESTERone ACET IM SUSP 150 MG/ML VIAL IM ONE (10:20)
== END 2022-07-08 15:10 | disposition home or self-care (01) | DRG 540 ==
LOC: M LDI 12:00 → M OBS 07-06 18:51
PROVIDERS: ADMIT Advanced Practice Midwife; ATTEND Obstetrics & Gynecology
PROC: 3E0P7GC Introduction of Other Therapeutic Substance into Female Reproductive, Via Natural or Artificial Opening (ICD-10-PCS; 2022-07-05)
PROC: 10907ZC Drainage of Amniotic Fluid, Therapeutic from Products of Conception, Via Natural or Artificial Opening (ICD-10-PCS; 2022-07-06)
PROC: 10D00Z1 Extraction of Products of Conception, Low, Open Approach (ICD-10-PCS; principal; 2022-07-06 15:30)
DX: O48.0 Post-term pregnancy (principal); E66.9 Obesity, unspecified; O99.214 Obesity complicating childbirth; Z3A.41 41 weeks gestation of pregnancy; O76 Abnormality in fetal heart rate and rhythm complicating labor and delivery; O77.0 Labor and delivery complicated by meconium in amniotic fluid; Z37.0 Single live birth

== ENCOUNTER → 2024-01-28 | Outpatient (REF) | payer OTHER ==
[~2024-01-28] MED LIST changes: +ACET-683 PO; +COLA100C5 PO; +ONDA-282 PO; -ONDA4TAB6 PO; +OXYC-517 PO
== END ==
LOC: M LAB REF 19:30
PROVIDERS: ATTEND Physician Assistant Medical
DX: J02.9 Acute pharyngitis, unspecified (principal)

== ENCOUNTER 2024-07-13 07:54 | Emergency (ER) | payer OTHER ==
[~2024-07-13] VITALS: Ht 170.2 cm; Wt 119.3 kg
[2024-07-13 09:26] LABS: BASO % 0.2 % (0.0-1.0); EOS % 0.1 % (0.0-3.0); HEMATOCRIT 37.8 % (36.0-47.0); LYMPH # 1.1 10^3/uL (1.5-5.0); LYMPH % 7.1 % (24.0-44.0); MEAN CORPUSCULAR HEMOGLOBIN 31.3 pg (27.0-33.0); MEAN CORPUSCULAR HGB CONC 34.4 g/dl (32.0-36.5); MEAN CORPUSCULAR VOLUME 91.1 fl (80.0-96.0); MONO # 0.6 10^3/uL (0.0-0.8); MONO % 4.2 % (2.0-8.0); NEUTROPHILS # 13.3 10^3/uL (1.5-8.5); NEUTROPHILS % 87.9 % (36.0-66.0); PLATELET COUNT, AUTOMATED 348 10^3/uL (150-450); RED BLOOD COUNT 4.15 10^6/uL (4.00-5.40); WHITE BLOOD COUNT 15.1 10^3/uL (4.0-10.0)
[2024-07-13 09:42] LABS: BLOOD UREA NITROGEN 19 MG/DL (9-23); CALCIUM LEVEL 9.6 MG/DL (8.5-10.1); CARBON DIOXIDE LEVEL 25 MMOL/L (20-31); CHLORIDE LEVEL 107 MMOL/L (98-107); CREATININE FOR GFR 0.76 MG/DL (0.55-1.30); GLOMERULAR FILTRATION RATE > 60.0 (>60); GLUCOSE, FASTING 104 MG/DL (60-100); POTASSIUM SERUM 3.9 MMOL/L (3.5-5.1); SODIUM LEVEL 145 MMOL/L (136-145)
[2024-07-13] MEDS: KETOROLAC 30 MG/ML 1ML VIAL IV ONE (10:13)
[2024-07-13] MEDS: METOCLOPRAMIDE INJ 10MG/2ML VIAL IV ONE (10:13)
[2024-07-13] MEDS: NS 500 ML IV ONE (10:17)
[2024-07-13 11:10] LABS: HCG, SERUM QUALITATIVE NEGATIVE (NEGATIVE)
[2024-07-13] MEDS ORDERED: ISOVUE-370 76% 100ML VIAL As Ordered ONE (11:29)
[2024-07-13 11:31] LABS: LIPASE 26 U/L (12-53)
[2024-07-13 11:33] LABS: ALBUMIN 4.1 G/DL (3.2-5.2); ALKALINE PHOSPHATASE 68 U/L (35-104); ALT/SGPT 18 U/L (7.0-40); AST/SGOT 14 U/L (<34); BILIRUBIN,DIRECT 0.1 MG/DL (<0.4); BILIRUBIN,TOTAL 0.4 MG/DL (0.3-1.2); TOTAL PROTEIN 8.1 G/DL (5.7-8.2)
[2024-07-13 12:39] VITALS: BP 121/57; O2SAT 97
[2024-07-13 12:44] VITALS: TEMP 97.4
== END 2024-07-13 12:57 | disposition home or self-care (01) ==
LOC: M ED 07:54
DX: A09 Infectious gastroenteritis and colitis, unspecified (principal); R00.1 Bradycardia, unspecified; F12.10 Cannabis abuse, uncomplicated; Z79.1 Long term (current) use of non-steroidal anti-inflammatories (NSAID)
CPT/HCPCS: 74177; 80048; 80076; 83690; 84703; 85025; 87486; 87581; 87633; 87798; 93005; 96361; 96374; 99284; J1885; J2765; Q9967

== ENCOUNTER → 2025-02-22 | Outpatient (CLI) | payer OTHER ==
[~2025-02-22] MED LIST changes: -IBUP-1022 PO; +IBUP600T42 PO
== END ==
LOC: M RAD 08:43
PROVIDERS: ATTEND Family Medicine Addiction Medicine
DX: K76.89 Other specified diseases of liver (principal)